=== PATIENT | female | born 1995 | race Caucasian/White ===

== ENCOUNTER 2017-03-28 10:10 | Emergency (ER) | payer OTHER ==
[~2017-03-28] VITALS: Ht 177.8 cm; Wt 98.0 kg
[~2017-03-28 10:10] MED LIST: IBUP1TAB7 PO; ROBA750T PO
[2017-03-28 10:12] VITALS: BP 140/80; PULSE 109; RESP 16; TEMP 98.3; O2SAT 100
[2017-03-28] MEDS ORDERED: SODIUM CHLOR 0.9% 1000 ML INJ 1,000 ML IV ONE (11:30)
--- NOTE | 2017-03-28 11:33 | PD ---
HPI Chief Complaint: Related Problem Time Seen by Provider: 11:14 Travel History International Travel<30 days: No Contact w/Intl Traveler<30days: No Traveled to known affect area: No History of Present Illness HPI This is a 21-year-old female who presents to the emergency department 13 weeks with twins coming in with 2 days of nausea, vomiting and diarrhea. She says she's had 10 episodes of vomiting and she's had loose nonbloody stools , constant, moderate severity. She says she ate more than normal last night. She denies any fevers or chills. No one else is been sick. She was mostly concerned because she is . She's been taking Phenergan for nausea which was prescribed by her intensive care unit nurse. PFSH Past Medical History Autoimmune Disease: No Anxiety: No Depression: No Cardiovascular Problems: No Diminished Hearing: No Gastrointestinal Disorders: No Genitourinary: No Musculoskeletal: No Neurologic: No Psychiatric: No Respiratory: No Immunizations Current: Yes ?: Past Surgical History Other Surgery: No Social History Alcohol Use: No Tobacco Use: No Substance Use: Yes (MARIJUANA) Allergies-Medications (Allergen,Severity, Reaction): Coded Allergies: latex (Unverified Allergy, Intermediate, RASH, 03/28/17) Reported Meds & Prescriptions Reported Meds & Active Scripts Active Ibuprofen 800 Mg Tab 800 Mg PO Q8H PRN Robaxin (Methocarbamol) 750 Mg Tab 750 Mg PO Q8HR Review of Systems Except as stated in HPI: all other systems reviewed are Neg Physical Exam Narrative GENERAL:Well appearing, no acute distress SKIN: Focused skin assessment warm and dry. HEAD: Atraumatic. Normocephalic. EYES: Pupils equal and round. No injection or drainage. ENT: Moist mucous membranes NECK: Trachea midline. CARDIOVASCULAR: Regular rate and rhythm. No murmur appreciated. RESPIRATORY: Clear to auscultation. Breath sounds equal bilaterally. GASTROINTESTINAL: Abdomen soft, non-tender, nondistended. MUSCULOSKELETAL: No obvious deformities. NEUROLOGICAL: Awake and alert. No obvious cranial nerve deficits. Moving all extremities. PSYCHIATRIC: Appropriate mood and affect; insight and judgment normal. Data Data Last Documented VS Vital Signs Date Time Temp Pulse Resp B/P (MAP) Pulse Ox O2 Delivery O2 Flow Rate FiO2 03/28/17 10:12 98.3 109 16 140/80 (100) 100 Orders Orders Complete Blood Count With Diff (03/28/17 11:27) Comprehensive Metabolic Panel (03/28/17 11:27) ^ Insert Iv (03/28/17 11:27) Sodium Chlor 0.9% 1000 Ml Inj (Ns 1000 M (03/28/17 11:30) Ondansetron Inj (Zofran Inj) (03/28/17 11:45) Labs Laboratory Tests Test 03/28/17 11:50 White Blood Count 15.6 TH/MM3 Red Blood Count 4.62 MIL/MM3 Hemoglobin 14.0 GM/DL Hematocrit 40.3 % Mean Corpuscular Volume 87.3 FL Mean Corpuscular Hemoglobin 30.3 PG Mean Corpuscular Hemoglobin Concent 34.7 % Red Cell Distribution Width 13.4 % Platelet Count 223 TH/MM3 Mean Platelet Volume 10.6 FL Neutrophils (%) (Auto) 90.8 % Lymphocytes (%) (Auto) 5.5 % Monocytes (%) (Auto) 3.4 % Eosinophils (%) (Auto) 0.1 % Basophils (%) (Auto) 0.2 % Neutrophils # (Auto) 14.2 TH/MM3 Lymphocytes # (Auto) 0.9 TH/MM3 Monocytes # (Auto) 0.5 TH/MM3 Eosinophils # (Auto) 0.0 TH/MM3 Basophils # (Auto) 0.0 TH/MM3 CBC Comment DIFF FINAL Differential Comment Blood Urea Nitrogen 9 MG/DL Creatinine 0.45 MG/DL Random Glucose 93 MG/DL Total Protein 7.3 GM/DL Albumin 3.5 GM/DL Calcium Level 9.2 MG/DL Alkaline Phosphatase 53 U/L Aspartate Amino Transf (AST/SGOT) 14 U/L Alanine Aminotransferase (ALT/SGPT) 22 U/L Total Bilirubin 0.3 MG/DL Sodium Level 137 MEQ/L Potassium Level 3.6 MEQ/L Chloride Level 104 MEQ/L Carbon Dioxide Level 23.3 MEQ/L Anion Gap 10 MEQ/L Estimat Glomerular Filtration Rate 178 ML/MIN MDM Medical Decision Making Medical Screen Exam Complete: Yes Emergency Medical Condition: Yes Interpretation(s) Afebrile, mild tachycardia, normotensive Leukocytosis mildly elevated consistent with likely gastroenteritis and early . Electrolytes are reassuring with no evidence of dehydration. Differential Diagnosis Gastroenteritis, appendicitis, dehydration, electrolyte abnormality Narrative Course This is a 21-year-old female who is 13 weeks who presents to the emergency department with vomiting and diarrhea. She was given a liter of IV hydration. Labs are obtained which demonstrate a mild leukocytosis but are otherwise reassuring. She has a benign abdomen. I think the patient has viral gastroenteritis. I think she can be treated conservatively and can continue to take her antiemetics at home. Patient will be discharged. Diagnosis Primary Impression: Viral gastroenteritis Patient Instructions: General Instructions Additional Instructions: If you develop lightheadedness, dizziness, persistent vomiting, inability to eat , or severe abdominal pain return to the emergency department. Followup with your primary care physician in 2-3 days if your symptoms have not resolved. Wash your hands aggressively after using the restroom as to not spread your illness to others. Do not return to work until your symptoms have resolved. Med/Other Pt SpecificInfo: No Change to Meds Disposition: 01 DISCHARGE HOME Condition: Stable Deedee Lopes MD Mar 28, 2017 11:33
[2017-03-28] MEDS ORDERED: ONDANSETRON HCL 4 MG/2 ML VIAL IV ONE (11:45)
[2017-03-28 12:29] LABS: AUTOMATED NEUTROPHIL # 14.2 TH/MM3 (1.8-7.7); BASOPHIL % 0.2 % (0.0-2.0); EOSINOPHIL % 0.1 % (0.0-4.0); HEMATOCRIT 40.3 % (35.0-46.0); LYMPH % 5.5 % (9.0-44.0); LYMPHOCYTE # 0.9 TH/MM3 (1.0-4.8); MEAN CELL VOLUME 87.3 FL (80.0-100.0); MEAN CORPUSCULAR HEMOGLOBIN 30.3 PG (27.0-34.0); MEAN CORPUSCULAR HGB CONC 34.7 % (32.0-36.0); MEAN PLATELET VOLUME 10.6 FL (7.0-11.0); MONO % 3.4 % (0.0-8.0); MONOCYTE # 0.5 TH/MM3 (0-0.9); NEUT % 90.8 % (16.0-70.0); PLATELET COUNT 223 TH/MM3 (150-450); RED BLOOD COUNT 4.62 MIL/MM3 (4.00-5.30); RED CELL DISTRIBUTION WIDTH 13.4 % (11.6-17.2); WHITE BLOOD COUNT 15.6 TH/MM3 (4.0-11.0)
[2017-03-28 12:42] LABS: ALBUMIN 3.5 GM/DL (3.4-5.0); AST (GOT) 14 U/L (16-38); BICARBONATE 23.3 MEQ/L (21.0-32.0); BLOOD UREA NITROGEN 9 MG/DL (7-18); CALCIUM 9.2 MG/DL (8.5-10.1); CHLORIDE 104 MEQ/L (98-107); CREATININE 0.45 MG/DL (0.50-1.00); GLOMERULAR FILTRATION RATE 178 ML/MIN (>89); GLUCOSE,RANDOM 93 MG/DL (74-106); SODIUM (NA) 137 MEQ/L (136-145)
[2017-03-28 12:44] LABS: ALT (GPT) 22 U/L (9-42)
[2017-03-28 12:46] LABS: ALKALINE PHOSPHATASE 53 U/L (45-117); TOTAL BILIRUBIN ADULT 0.3 MG/DL (0.2-1.0); TOTAL PROTEIN 7.3 GM/DL (6.4-8.2)
[2017-03-28 13:21] VITALS: BP 132/76
== END 2017-03-28 13:22 | disposition home or self-care (01) ==
LOC: NEPD 10:10
DX: A08.4 Viral intestinal infection, unspecified (principal); Z3A.13 13 weeks gestation of pregnancy; F12.90 Cannabis use, unspecified, uncomplicated
CPT/HCPCS: 80053; 85025; 96361; 96374; 99284; J2405; J7030

== ENCOUNTER → 2017-04-20 | Outpatient (CLI) | payer OTHER | LOC: HPND 12:46 | PROVIDERS: ATTEND Obstetrics & Gynecology | DX: O30.032 Twin pregnancy, monochorionic/diamniotic, second trimester (principal); O28.0 Abnormal hematological finding on antenatal screening of mother | CPT/HCPCS: 76811; 76812; 76817 ==

== ENCOUNTER → 2017-05-04 | Outpatient (CLI) | payer OTHER | LOC: HPND 12:52 | PROVIDERS: ATTEND Obstetrics & Gynecology | DX: O30.032 Twin pregnancy, monochorionic/diamniotic, second trimester (principal); O28.0 Abnormal hematological finding on antenatal screening of mother | CPT/HCPCS: 76815; 76817; 76820 ==

== ENCOUNTER → 2017-05-18 | Outpatient (CLI) | payer OTHER | LOC: HPND 12:28 | PROVIDERS: ATTEND Obstetrics & Gynecology | DX: O30.032 Twin pregnancy, monochorionic/diamniotic, second trimester (principal); O28.0 Abnormal hematological finding on antenatal screening of mother | CPT/HCPCS: 76816 ==

== ENCOUNTER → 2017-06-01 | Outpatient (CLI) | payer OTHER | LOC: HPND 12:03 | PROVIDERS: ATTEND Obstetrics & Gynecology | DX: O30.032 Twin pregnancy, monochorionic/diamniotic, second trimester (principal) | CPT/HCPCS: 76815; 76817 ==

== ENCOUNTER 2017-06-17 09:12 | Emergency (ER) | payer OTHER, MEDICAID ==
[~2017-06-17] VITALS: Ht 177.8 cm; Wt 113.4 kg
--- NOTE | 2017-06-17 10:40 | PD ---
HPI Chief Complaint cramping pain and soreness Date Seen: Jun 17, 2017 Time Seen: 10:00 (Carter Pickens MD R1) Travel History International Travel<30 Days: No Contact w/Intl Traveler<30Days: No Known Affected Area: No (Carter Pickens MD R1) History of Present Illness HPI Ms Madden is a 21YO with mono/di twin gestation at 25/[address] Turcios who presents with cramping pain and soreness in RLQ beginning this morning. Pt states pain is 8/10 on pain scale and constant. Pt has not taken anything for the pain yet but states she has been hydrating. Pt gets OB diagnostic US q2 weeks and got one yesterday on 06/16 with showed twin gestation at 25/3 weeks with no abnormalities on US; however, there was an abnormal quad screen and pt has declined amniocentesis. Pt denies discharge or vaginal bleeding, N/V/D, constipation, fever, dysuria, PECK, CP or SOB. Pt did have strep throat approx 2 weeks ago treated with amoxicillin. Pt states sore throat has resolved but still has an intermittent cough. Pt is currently taking PNV and aspirin as ppx but denies any high BP or increased blood glucose. States all her labs have been normal thus far. Denies previous STIs and states her urinalysis thus far has been normal with no protein. Denies sexual activity for last 2 weeks. Weeks Gestation: 25 Para: 0 : 1 Last Menstrual Period: Jun 17, 2017 Miscarriage: 0 : 0 (Carter Pickens MD R1) History Past Medical History Medical History: Denies Significant Hx (Carter Pickens MD R1) Obstetric History Obstetric History (Carter Pickens MD R1) Past Surgical History Narrative Surgical Surgery on left arm as 9YO due to fracture (Carter Pickens MD R1) Family History Narrative Family History negative (Carter Pickens MD) Social History Alcohol Use: No Tobacco Use: No Substance Abuse: No (Carter Pickens MD) Allergies-Medications (Allergen,Severity, Reaction): Coded Allergies: latex (Unverified Allergy, Intermediate, RASH, 06/17/17) Home Meds Active Scripts Ibuprofen (Ibuprofen) 800 Mg Tab, 800 MG PO Q8H Y for PAIN SCALE 1 TO 10, #21 TAB 0 Refills Prov:Amada Griggs MD 02/13/16 Methocarbamol (Robaxin) 750 Mg Tab, 750 MG PO Q8HR for Muscle Spasm, #21 TAB 0 Refills Prov:Amada Griggs MD 02/13/16 Review of Systems General / Constitutional: No: Fever, Chills HENT: No: Headaches, Lightheadedness Cardiovascular: Edema, No: Chest Pain or Discomfort, Palpitations Respiratory: Cough, No: Short of Breath Gastrointestinal: Abdominal Pain, No: Nausea, Vomiting, Diarrhea, Constipation , Changes in Bowel Habits Genitourinary: Pelvic Pain (RLQ), No: Urgency, Dysuria, Hematuria, Discharge, Vaginal Bleeding Musculoskeletal: Cramping (RLQ), Edema Skin: No Rash Neurologic: No: Weakness, Dizziness, Headache (Carter Pickens MD R1) Physical Exam T - 99.4 / BP 134/82 / HR 124-130 / spO2 98% RA Narrative GENERAL: Well-nourished, well-developed patient in NAD. SKIN: Warm and dry. no rashes; however, numerous lower abdominal striae bilaterally. HEAD: Normocephalic and atraumatic. EYES: No scleral icterus. No injection or drainage. ENT: No nasal drainage noted. Mucous membranes pink. Airway patent. NECK: Supple, trachea midline. No JVD. CARDIOVASCULAR: Tachycardic with regular rhythm without murmurs, gallops, or rubs. RESPIRATORY: Breath sounds equal bilaterally. No accessory muscle use. ABDOMEN/GI: Abdomen soft, non-tender, bowel sounds present, no rebound, no guarding Gravid to 25 weeks size GENITOURINARY: External Genitalia: intact and normal in appearance Cervix: closed, high and long Dilatation: - Effacement: - Station: - Presentation: - Membranes: intact Uterine Contractions: absent FHT's: Category: 1 Baseline: Twin A - 150 / Twin B - 150 Reactive: yes Variability: moderate Decels: absent EXTREMITIES: No cyanosis or edema. BACK: Nontender without obvious deformity. No CVA tenderness. NEUROLOGICAL: Awake and alert. Motor and sensory grossly within normal limits. Five out of 5 muscle strength in all muscle groups. Normal speech. (Carter Pickens MD R1) Data Data Vital Signs Reviewed: Yes Orders Orders Urinalysis - C+S If Indicated (06/17/17 09:51) Fibronectin (06/17/17 10:02) (Carter Pickens MD R1) MDM Medical Record Reviewed: Yes Narrative Course / MDM 21YO with mono/di twin gestation on OB diagnostic US at 25/4 weeks, pt followed by Dr Turcios, p/w new onset RLQ cramping pain and soreness this morning. Consider dehydration vs UTI vs round ligament pain. FHTs both twins Cat 1 with baseline 150 moderate, reactive, no decels; pt ishas no ctx, discharge, vaginal bleeding 1. [place]/Di Twin gestation -OB diagnostic US 06/16/17 wnl 2. RLQ cramping pain/soreness; likely some dehydration with round ligament pain -UA negative for infection but there are some occult calcium oxalate crystals -FFN negative -Tylenol 650mg PO q6h -Encourage hydration--calcium oxalate crystals can raise possibility of kidney stones; pt encouraged to take more fluids Pt seen and dw Dean Feliciano and Kehinde Dumont (Carter Pickens MD R1) Attending Attestation Patient seen and evaluated with resident under direct supervision, agree with assessment and plan. (Bridger Feliciano MD) Diagnosis Diagnosis: Primary Impression: Antepartum dehydration Additional Impression: Round ligament pain Disposition: 01 DISCHARGE HOME Condition: Stable Carter Pickens MD R1 Jun 17, 2017 10:40 Bridger Feliciano MD Jun 17, 2017 12:59
[2017-06-17 10:47] LABS: BACTERIA, URINE RARE /hpf; BILIRUBIN, URINE NEG (NEG); BLOOD, URINE NEG (NEG); CALCIUM OXALATE CRYSTALS,URINE OCC /hpf; GLUCOSE,URINE NEG (NEG); KETONE, URINE NEG (NEG); MUCUS URINE FEW /lpf (OCC); NITRITE,URINE NEG (NEG); PH, URINE 6.5 (5.0-8.5); SQUAMOUS EPITHELIAL CELL URINE 2 /hpf (0-5); TRANSITIONAL EPI CELLS, URINE <1 /hpf; URINE COLOR YELLOW (YELLW/STRAW); URINE LEUKOCYTE ESTERASE NEG (NEG)
== END 2017-06-17 12:25 | disposition home or self-care (01) ==
LOC: HOBED 09:12
DX: O26.892 Other specified pregnancy related conditions, second trimester (principal); E86.0 Dehydration; R10.2 Pelvic and perineal pain; O30.032 Twin pregnancy, monochorionic/diamniotic, second trimester; Z3A.25 25 weeks gestation of pregnancy
CPT/HCPCS: 81001; 82731; 99284

== ENCOUNTER 2017-06-21 07:36 | Emergency (ER) | payer OTHER, MEDICAID ==
[~2017-06-21] VITALS: Ht 177.8 cm; Wt 95.3 kg
--- NOTE | 2017-06-21 08:21 | PD ---
HPI Chief Complaint Swollen painful red ankle Date Seen: Jun 21, 2017 Time Seen: 08:10 Travel History International Travel<30 Days: No Contact w/Intl Traveler<30Days: No Known Affected Area: No History of Present Illness HPI Patient is 21-year-old primary [address] Turcios at [facility] for care and presents with complaint of a painful red swollen right ankle, both ankles are swollen have been swollen for a month but yesterday her right ankle pain increased and now it is red and very tender, there is no history of injury to either ankle,; there is no obstetric complaint heart rate tracing is reactive no contractions seen, no bleeding, leakage, Weeks Gestation: 26 Para: 0 : 1 Allergies-Medications (Allergen,Severity, Reaction): Coded Allergies: latex (Unverified Allergy, Intermediate, RASH, 06/17/17) Home Meds Active Scripts Cephalexin (Keflex) 500 Mg Cap, 500 MG PO Q6H for Infection for 7 Days, #28 CAP 0 Refills Prov:Javier Ho II, MD 06/21/17 Discontinued Scripts Ibuprofen (Ibuprofen) 800 Mg Tab, 800 MG PO Q8H Y for PAIN SCALE 1 TO 10, #21 TAB 0 Refills Prov:Amada Griggs MD 02/13/16 Methocarbamol (Robaxin) 750 Mg Tab, 750 MG PO Q8HR for Muscle Spasm, #21 TAB 0 Refills Prov:Amada Griggs MD 02/13/16 Review of Systems General / Constitutional: No: Fever, Weight Gain, Chills, Other Eyes: No: Diploplia, Blurred Vision, Visual changes, Pain, Photophobia HENT: No: Headaches, Vertigo, Lightheadedness Cardiovascular: No: Irregular Rhythm, Chest Pain or Discomfort, Palpitations, Tachycardia, Syncope, Varicosities, Edema, Cyanosis Respiratory: No: Cough, Short of Breath, Other Gastrointestinal: No: Nausea, Vomiting, Diarrhea Genitourinary: No: Decreased Urinary Output, Oliguria Musculoskeletal: Edema, Pain, No: Limited ROM, Weakness, Cramping Skin: No Rash, No Itching, No Dryness, No Lumps, No Change in Pigmentation, No Change in Nails, No Alopecia, No Lesions Neurologic: No: Weakness, Dizziness, Syncope, Focal Abnormalities, Coordination Problem, Headache, Slurred Speech, Seizures Psychiatric: No: Depression, Suicidal Ideations, Homicidal Ideation Endocrine: No: Heat Intolerance, Cold Intolerance, Polydipsia, Polyuria, Other Physical Exam Narrative GENERAL: Well-nourished, well-developed patient. SKIN: Warm and dry. HEAD: Normocephalic and atraumatic. EYES: No scleral icterus. No injection or drainage. ENT: No nasal drainage noted. Mucous membranes pink. Airway patent. NECK: Supple, trachea midline. No JVD. CARDIOVASCULAR: Regular rate and rhythm without murmurs, gallops, or rubs. RESPIRATORY: Breath sounds equal bilaterally. No accessory muscle use. BREASTS: Bilateral exam showed no masses , no retractions, no nipple discharge. ABDOMEN/GI: Abdomen soft, non-tender, bowel sounds present, no rebound, no guarding Gravid to [26-] weeks size Fundal Height: [26-] FHT's: Category: [1-] Baseline: [133-] Reactive: [R-] Variability: [mod-] Decels: [0-] EXTREMITIES: Ankles are swollen, right ankle is also a cellulitis on the inside surface, area is pink to red, tender to touch, warm to palpation BACK: Nontender without obvious deformity. No CVA tenderness. NEUROLOGICAL: Awake and alert. Motor and sensory grossly within normal limits. Five out of 5 muscle strength in all muscle groups. Normal speech. Data Data Orders Orders Us Leg Venous Doppler (06/21/17 ) Complete Blood Count With Diff (06/21/17 08:11) Labs venous doppler neg for DVT MDM Interpretation(s) Patient is 21-year-old white female at 26 weeks who presents with right ankle cellulitis, plan venous Doppler of the right lower extremity [neg for DVT], p.o. antibiotics[ keflex 500 mg po qid 7 d], elevation of the extremity, will discuss with Dr. Turcios Plan Plan as described above patient in follow-up in the [facility] office Diagnosis Diagnosis: Primary Impression: Cellulitis of right ankle Additional Impression: 26 weeks gestation of Disposition: DISCHARGE HOME Condition: Stable Scripts Cephalexin (Keflex) 500 Mg Cap 500 MG PO Q6H for Infection for 7 Days, #28 CAP 0 Refills Prov: Javier Ho II, MD 06/21/17 Javier Ho II, MD Jun 21, 2017 08:21
[2017-06-21] MEDS ORDERED: CEPH-460 PO (08:28)
[2017-06-21 08:37] LABS: AUTOMATED NEUTROPHIL # 8.6 TH/MM3 (1.8-7.7); BASOPHIL % 0.2 % (0.0-2.0); EOSINOPHIL % 0.3 % (0.0-4.0); HEMATOCRIT 32.3 % (35.0-46.0); HEMOGLOBIN 11.2 GM/DL (11.6-15.3); LYMPH % 11.5 % (9.0-44.0); LYMPHOCYTE # 1.2 TH/MM3 (1.0-4.8); MEAN CELL VOLUME 86.5 FL (80.0-100.0); MEAN CORPUSCULAR HEMOGLOBIN 29.9 PG (27.0-34.0); MEAN CORPUSCULAR HGB CONC 34.6 % (32.0-36.0); MEAN PLATELET VOLUME 9.4 FL (7.0-11.0); MONO % 6.4 % (0.0-8.0); MONOCYTE # 0.7 TH/MM3 (0-0.9); NEUT % 81.6 % (16.0-70.0); PLATELET COUNT 204 TH/MM3 (150-450); RED BLOOD COUNT 3.74 MIL/MM3 (4.00-5.30); RED CELL DISTRIBUTION WIDTH 13.7 % (11.6-17.2); WHITE BLOOD COUNT 10.6 TH/MM3 (4.0-11.0)
--- NOTE | 2017-06-21 09:10 | RADRPT ---
EXAM DATE/TIME: 06/21/2017 08:31 [facility] COMPARISON: No previous studies available for comparison. INDICATIONS : Right leg swelling and pain. MEDICAL HISTORY : Peripheral vascular disease. SURGICAL HISTORY : None. Left arm surgery. ENCOUNTER: Initial ACUITY: 2 day PAIN SCORE: 6/10 LOCATION: Right leg. TECHNIQUE: Venous ultrasound of the leg was performed from the inguinal ligament to the proximal calf. Real-kera e, color Doppler and spectral tracing, compression and augmentation techniques were used. FINDINGS: There is normal compressibility of the deep venous system from the inguinal region to the proximal ca lf. No echogenic clot is seen in the lumen of the common femoral, femoral, popliteal, and posterior tibial veins. There is a normal response of the venous system to proximal and distal augmentation an d respiration. CONCLUSION: No acute disease. Kory Miranda MD on June 21, 2017 at 9:08 Board Certified Radiologist. This report was verified electronically.
== END 2017-06-21 09:12 | disposition home or self-care (01) ==
LOC: HOBED 07:36
DX: O99.712 Diseases of the skin and subcutaneous tissue complicating pregnancy, second trimester (principal); L03.115 Cellulitis of right lower limb; Z3A.26 26 weeks gestation of pregnancy
CPT/HCPCS: 36415; 85025; 93971

== ENCOUNTER 2017-07-08 08:52 | Emergency (ER) | payer OTHER, MEDICAID ==
[~2017-07-08 08:52] MED LIST changes: +CEPH-460 PO; -IBUP1TAB7 PO; -ROBA750T PO
[2017-07-08 10:06] LABS: AUTOMATED NEUTROPHIL # 11.1 TH/MM3 (1.8-7.7); BASOPHIL % 0.2 % (0.0-2.0); EOSINOPHIL # 0.1 TH/MM3 (0-0.4); EOSINOPHIL % 0.6 % (0.0-4.0); HEMATOCRIT 34.6 % (35.0-46.0); HEMOGLOBIN 11.8 GM/DL (11.6-15.3); LYMPH % 14.2 % (9.0-44.0); MEAN CELL VOLUME 86.3 FL (80.0-100.0); MEAN CORPUSCULAR HEMOGLOBIN 29.4 PG (27.0-34.0); MEAN PLATELET VOLUME 9.9 FL (7.0-11.0); MONO % 7.4 % (0.0-8.0); MONOCYTE # 1.1 TH/MM3 (0-0.9); NEUT % 77.6 % (16.0-70.0); PLATELET COUNT 240 TH/MM3 (150-450); RED BLOOD COUNT 4.01 MIL/MM3 (4.00-5.30); RED CELL DISTRIBUTION WIDTH 13.4 % (11.6-17.2); WHITE BLOOD COUNT 14.3 TH/MM3 (4.0-11.0)
[2017-07-08 10:21] LABS: ALBUMIN 2.3 GM/DL (3.4-5.0); ALT (GPT) 20 U/L (9-42); AST (GOT) 16 U/L (16-38); BLOOD UREA NITROGEN 5 MG/DL (7-18); CALCIUM 9.3 MG/DL (8.5-10.1); CHLORIDE 107 MEQ/L (98-107); CREATININE 0.37 MG/DL (0.50-1.00); GLOMERULAR FILTRATION RATE 223 ML/MIN (>89); GLUCOSE,RANDOM 79 MG/DL (74-106); SODIUM (NA) 142 MEQ/L (136-145)
[2017-07-08 10:24] LABS: ALKALINE PHOSPHATASE 108 U/L (45-117); TOTAL BILIRUBIN ADULT 0.2 MG/DL (0.2-1.0); TOTAL PROTEIN 5.8 GM/DL (6.4-8.2)
[2017-07-08 10:33] LABS: BACTERIA, URINE OCC /hpf; BILIRUBIN, URINE NEG (NEG); BLOOD, URINE NEG (NEG); GLUCOSE,URINE NEG (NEG); KETONE, URINE NEG (NEG); MUCUS URINE FEW /lpf (OCC); NITRITE,URINE NEG (NEG); SQUAMOUS EPITHELIAL CELL URINE 12 /hpf (0-5); URINE COLOR YELLOW (YELLW/STRAW); URINE LEUKOCYTE ESTERASE MOD (NEG)
--- NOTE | 2017-07-08 10:53 | PD ---
HPI Chief Complaint Elevated blood pressure Date Seen: Jul 08, 2017 Time Seen: 10:49 Travel History International Travel<30 Days: No Contact w/Intl Traveler<30Days: No Known Affected Area: No History of Present Illness HPI 21-year-old primigravida at 28+ weeks gestation with a dichorionic diamniotic twin gestation who comes for evaluation of elevated blood pressure. She is a patient of Dr. Doyle. She reports having a mildly elevated blood pressure in the office earlier this week and was planning a 24-hour urine collection to start on Tuesday. She denies any headache, visual changes or abrupt change in swelling. No abdominal pain. She reports good movement. History Past Medical History Medical History: Denies Significant Hx Past Surgical History Narrative Surgical Arm surgery Family History Family History: Negative Social History Alcohol Use: No Tobacco Use: No Substance Abuse: No Allergies-Medications (Allergen,Severity, Reaction): Coded Allergies: latex (Unverified Allergy, Intermediate, RASH, 06/17/17) Home Meds Active Scripts Cephalexin (Keflex) 500 Mg Cap, 500 MG PO Q6H for Infection for 7 Days, #28 CAP 0 Refills Prov:Javier Ho II, MD 06/21/17 Review of Systems Except as stated in HPI: all other systems reviewed are Neg Physical Exam Narrative GENERAL: Well-nourished, well-developed patient. SKIN: Warm and dry. HEAD: Normocephalic and atraumatic. EYES: No scleral icterus. No injection or drainage. ENT: No nasal drainage noted. Mucous membranes pink. Airway patent. NECK: Supple, trachea midline. No JVD. CARDIOVASCULAR: Regular rate and rhythm without murmurs, gallops, or rubs. RESPIRATORY: Breath sounds equal bilaterally. No accessory muscle use. ABDOMEN/GI: Abdomen soft, non-tender, bowel sounds present, no rebound, no guarding Gravid to [-] weeks size Fundal Height: [-] GENITOURINARY: Uterine Contractions: [No-] FHT's: Category: [1-] Baseline: [-] Reactive: [-Yes 2] Variability: [-] Decels: [-] EXTREMITIES: No cyanosis or edema. BACK: Nontender without obvious deformity. No CVA tenderness. NEUROLOGICAL: Awake and alert. Motor and sensory grossly within normal limits. Five out of 5 muscle strength in all muscle groups. Normal speech. Data Data Orders Orders Urinalysis - C+S If Indicated (07/08/17 09:29) Protein Creat Ratio, Random Ur (07/08/17 09:29) Comprehensive Metabolic Panel (07/08/17 09:29) Uric Acid (07/08/17 09:29) Complete Blood Count With Diff (07/08/17 09:29) Labs Laboratory Tests Test 07/08/17 09:41 White Blood Count 14.3 Red Blood Count 4.01 Hemoglobin 11.8 Hematocrit 34.6 Mean Corpuscular Volume 86.3 Mean Corpuscular Hemoglobin 29.4 Mean Corpuscular Hemoglobin Concent 34.0 Red Cell Distribution Width 13.4 Platelet Count 240 Mean Platelet Volume 9.9 Neutrophils (%) (Auto) 77.6 Lymphocytes (%) (Auto) 14.2 Monocytes (%) (Auto) 7.4 Eosinophils (%) (Auto) 0.6 Basophils (%) (Auto) 0.2 Neutrophils # (Auto) 11.1 Lymphocytes # (Auto) 2.0 Monocytes # (Auto) 1.1 Eosinophils # (Auto) 0.1 Basophils # (Auto) 0.0 CBC Comment DIFF FINAL Differential Comment Urine Color YELLOW Urine Turbidity CLEAR Urine pH 6.0 Urine Specific [place] 1.016 Urine Protein TRACE Urine Glucose (UA) NEG Urine Ketones NEG Urine Occult Blood NEG Urine Nitrite NEG Urine Bilirubin NEG Urine Urobilinogen LESS THAN 2.0 Urine Leukocyte Esterase MOD Urine RBC 1 Urine WBC 6 Urine Squamous Epithelial Cells 12 Urine Bacteria OCC Urine Mucus FEW Microscopic Urinalysis Comment CULT NOT INDICATED Urine Random Total Protein 38 Blood Urea Nitrogen 5 Creatinine 0.37 Random Glucose 79 Total Protein 5.8 Albumin 2.3 Calcium Level 9.3 Uric Acid 5.4 Alkaline Phosphatase 108 Aspartate Amino Transf (AST/SGOT) 16 Alanine Aminotransferase (ALT/SGPT) 20 Total Bilirubin 0.2 Sodium Level 142 Potassium Level 3.8 Chloride Level 107 Carbon Dioxide Level 23.0 Anion Gap 12 Estimat Glomerular Filtration Rate 223 MDM Medical Record Reviewed: Yes Narrative Course / MDM Assessment: 28+ week twins with mild elevation of blood pressure, mildly elevated pr/cr, no evidence of severe disease Plan: Complete 24-hour urine starting on Tuesday and return to Dr. Doyle on Tuesday. Preeclampsia precautions were reviewed with the patient. Diagnosis Diagnosis: Primary Impression: 28 weeks gestation of Additional Impressions: Dichorionic diamniotic twin gestation Hypertension affecting in third trimester Disposition: 01 DISCHARGE HOME Condition: Good Bridger Feliciano MD Jul 08, 2017 10:53
== END 2017-07-08 12:14 | disposition home or self-care (01) ==
LOC: HOBED 08:52
DX: O16.3 Unspecified maternal hypertension, third trimester (principal); O30.043 Twin pregnancy, dichorionic/diamniotic, third trimester; Z3A.28 28 weeks gestation of pregnancy
CPT/HCPCS: 36415; 80053; 81001; 82570; 84156; 84550; 85025

== ENCOUNTER 2017-07-20 10:18 | Inpatient (IN) | payer OTHER, MEDICAID ==
[~2017-07-20] VITALS: Ht 177.8 cm; Wt 126.6 kg
[2017-07-20 10:43] VITALS: BP 156/94; PULSE 97
[2017-07-20 11:00] VITALS: RESP 18; TEMP 98.3
[2017-07-20] MEDS ORDERED: FAMOTIDINE 20 MG TAB PO PRN (11:00)
[2017-07-20] MEDS ORDERED: NIFEdipine 10 MG CAP PO PRN ×3 (11:00→11:45)
[2017-07-20] MEDS ORDERED: ONDANSETRON ODT 4 MG TAB PO PRN (11:00)
[2017-07-20] MEDS ORDERED: SODIUM CHLORIDE 0.9% FLUSH 10 ML FLUSH IV FLUSH PRN (11:00)
[2017-07-20] MEDS ORDERED: ACETAMINOPHEN 325 MG TAB PO PRN (11:00)
[2017-07-20] MEDS ORDERED: ONDANSETRON HCL 4 MG/2 ML VIAL IV PUSH PRN (11:00)
--- NOTE | 2017-07-20 11:03 | HHI.HP ---
HPI Chief Complaint admission for preeclampsia Date Seen: July 20, 2017 Travel History International Travel<30 Days: No Contact w/Intl Traveler<30Days: No Known Affected Area: No History of Present Illness HPI 21-year-old G1 at 30w2d by 9wk US (GARRICK 09/26/17) who is seen by maternal medicine today for testing and consultation due to new diagnosis of preeclampsia without severe features. She was being followed by them routinely for her monochorionic diamniotic twin gestation. Spoke to Dr. Penelope Arenas today and plan was made for inpatient management given the risks associated with a John , a slight decline in the MVP of Baby A but still normal and preeclampsia at gestation. I have been following the patient throughout her , she was diagnosed with preeclampsia at the end of last month with mild range BPs and a 24hr urine protein > 300mg. She has normal weekly HELLP labs and checking her BPs at home and aware of severe features. I did not see the patient personally today but I spoke to her over the phone after her admission, she has no complaints, denies headache, epigastric pain or right upper quadrant pain. Endorses movement. History Past Medical History Narrative Medical None Obstetric History Obstetric History G1 Past Surgical History Narrative Surgical Arm surgery Family History Narrative Family History Noncontributory Social History Alcohol Use: No Tobacco Use: Yes Allergies-Medications (Allergen,Severity, Reaction): Coded Allergies: latex (Unverified Allergy, Intermediate, RASH, 06/17/17) Home Meds Active Scripts Cephalexin (Keflex) 500 Mg Cap, 500 MG PO Q6H for Infection for 7 Days, #28 CAP 0 Refills Prov:Javier Ho II, MD 06/21/17 Narrative Medication Patient is not taking Keflex. Has been taking 81mg aspirin and vitamins daily Review of Systems General / Constitutional: No: Fever, Weight Gain, Chills, Other Eyes: No: Diploplia, Blurred Vision, Visual changes, Pain, Photophobia HENT: No: Headaches, Vertigo, Lightheadedness Cardiovascular: No: Irregular Rhythm, Chest Pain or Discomfort, Palpitations, Tachycardia, Syncope, Varicosities, Edema, Cyanosis Respiratory: No: Cough, Short of Breath, Other Gastrointestinal: No: Nausea, Vomiting, Diarrhea Genitourinary: No: Decreased Urinary Output, Oliguria Musculoskeletal: No: Limited ROM, Weakness, Cramping, Edema, Pain Skin: No Rash, No Itching, No Dryness, No Lumps, No Change in Pigmentation, No Change in Nails, No Alopecia, No Lesions Neurologic: No: Weakness, Dizziness, Syncope, Focal Abnormalities, Coordination Problem, Headache, Slurred Speech, Seizures Psychiatric: No: Depression, Suicidal Ideations, Homicidal Ideation Endocrine: No: Heat Intolerance, Cold Intolerance, Polydipsia, Polyuria, Other Physical Exam Temperature 98.3, pulse 97, respiratory rate 18, blood pressure 154/94. Narrative Deferred, Will perform tomorrow upon my assessment of the patient Caprini VTE Risk Assessment Caprini VTE Risk Assessment: Mod/High Risk (score >= 2) Caprini Risk Assessment Model Point Value = 1 Point Value = 2 Point Value = 3 Point Value = 5 Age 41-60 Minor surgery BMI > 25 kg/m2 Swollen legs Varicose veins or History of unexplained or recurrent spontaneous Oral contraceptives or hormone replacement Sepsis (< 1 month) Serious lung disease, including pneumonia (< 1 month) Abnormal pulmonary function Acute myocardial infarction Congestive heart failure (< 1 month) History of inflammatory bowel disease Medical patient at bed rest Age 61-74 Arthroscopic surgery Major open surgery (> 45 min) Laparoscopic surgery (> 45 min) Malignancy Confined to bed (> 72 hours) Immobilizing plaster cast Central venous access Age >= 75 History of VTE Family history of VTE Factor V Leiden Prothrombin [id number] Lupus anticoagulant Anticardiolipin antibodies Elevated serum homocysteine Heparin-induced thrombocytopenia Other congenital or acquired thrombophilia Stroke (< 1 month) Elective arthroplasty Hip, pelvis, or leg fracture Acute spinal cord injury (< 1 month) Prophylaxis Regimen Total Risk Factor Score Risk Level Prophylaxis Regimen 0-1 Low Early ambulation 2 Moderate Order ONE of the following: *Sequential Compression Device (SCD) *Heparin 5000 units SQ BID 3-4 Higher Order ONE of the following medications: *Heparin 5000 units SQ TID *Enoxaparin/Lovenox 40 mg SQ daily (WT < 150 kg, CrCl > 30 mL/min) *Enoxaparin/Lovenox 30 mg SQ daily (WT < 150 kg, CrCl > 10-29 mL/min) *Enoxaparin/Lovenox 30 mg SQ BID (WT < 150 kg, CrCl > 30 mL/min) AND/OR *Sequential Compression Device (SCD) 5 or more Highest Order ONE of the following medications: *Heparin 5000 units SQ TID (Preferred with Epidurals) *Enoxaparin/Lovenox 40 mg SQ daily (WT < 150 kg, CrCl > 30 mL/min) *Enoxaparin/Lovenox 30 mg SQ daily (WT < 150 kg, CrCl > 10-29 mL/min) *Enoxaparin/Lovenox 30 mg SQ BID (WT < 150 kg, CrCl > 30 mL/min) AND *Sequential Compression Device (SCD) Data Data Vital Signs Reviewed: Yes Orders Orders Admit To Inpatient (07/20/17 ) Diet Npo (07/20/17 Lunch) Vital Signs (Adult) RAQUEL.[id number]-HUOTO AWAKE (07/20/17 10:52) Heart RAQUEL.QSHIFT (07/20/17 10:52) Activity Oob Ad Dana (07/20/17 10:52) Acetaminophen (Tylenol) (07/20/17 11:00) Ibirbvew-Tyj-Nivdj-Iron Prenat (Stuartna (07/21/17 09:00) Sodium Chloride 0.9% Flush (Ns Flush) (07/20/17 21:00) Sodium Chloride 0.9% Flush (Ns Flush) (07/20/17 11:00) Zolpidem (Ambien) (07/20/17 11:00) Ondansetron Odt (Zofran Odt) (07/20/17 11:00) Ondansetron Inj (Zofran Inj) (07/20/17 11:00) Ob/Psych Drug Screen, Urine (07/20/17 10:52) Betamethasone Inj (Celestone Soluspan In (07/20/17 11:00) Code Status (07/20/17 10:52) Intake + Output Q6H (07/20/17 10:52) Notify Parameters (07/20/17 10:52) Nifedipine (Procardia) (07/20/17 11:00) Nifedipine (Procardia) (07/20/17 11:15) Nifedipine (Procardia) (07/20/17 11:45) Cbc No Diff, Includes Plts (07/20/17 10:52) Comprehensive Metabolic Panel (07/20/17 10:52) Total Protein 24hr Urine (07/20/17 10:52) Creatinine 24 Hr Urine (07/20/17 10:52) Inpatient Certification (07/20/17 ) Ranitidine Liq (Zantac Liq) (07/20/17 11:00) ^ For Group B Beta Strep (+) M (07/20/17 10:58) Group B Beta Strep Scrn (Gbs) (07/20/17 10:58) Consult Neonatology (07/20/17 ) Labs labs: -03/09/2017 -Blood type O positive, antibody screen negative, hemoglobin 13.6, Platelets 316 , TSH 0.499, sickle cell screen negative, direct screen positive for THC, varicella nonimmune, rubella equivocal, VDRL nonreactive, urine culture no growth, hepatitis B surface antigen negative, HIV negative - Declines cystic fibrosis screening - Screen positive open neural tube defect - 06/21/2017 -Hemoglobin 11.4, 1 hour GTT 122, urine drug screen negative, HIV negative, hepatitis B surface antigen negative. Assessment/Plan Problem List: (1) Preeclampsia ICD Codes: O14.90 - Unspecified pre-eclampsia, unspecified trimester (2) Monochorionic diamniotic twin gestation ICD Codes: O30.039 - Twin , monochorionic/diamniotic, unspecified trimester Assessment and Plan 21-year-old G1 at 30w2d by 9wk US (GARRICK 09/26/17) 1. monochorionic diamniotic twin gestation: - Plan for 2x/d NST, 2x/wk BPP / UA dopplers (consulted M for this), consult NICU, SCDs, regular diet, IV access, T&S, nurse to collect GBS. - EFW today (07/20/17) A: 1704g (61%) MVP 2.5 cm, cephalic B: 1504g (37%) MVP 5.6 cm, cephalic. 8/8 BPP x2 today. 3. Preeclampsia w/o severe features: based on mild range BPs and 24hr urine of 549mg (07/11/17) - Patient aware of recommendations for inpatient management until delivery, goal for delivery is approximately 34 weeks. Based on position she would be a candidate for vaginal delivery, will further discuss with MFM to see their opinion on breech delivery of fetus B at current weight. - BMZ now and repeat in 24hrs for FLM - No need or mag at this time - Trend BPs, will consider starting BP medication given borderline BP, Strict I/ Os, 1-2x/week HELLP labs, on admission today WNL, will repeat 24hr urine while inpatient per MFM but will not private branch exchange service adviser. 3. SPONTD: was only 3.99 MoM, s/p normal AU x2 with MFM. 4. Varicella and Rubella non immune: vaccines . Azar Turcios MD July 20, 2017 11:03
[2017-07-20] MEDS: BETAMETHASONE SOD PHOS/ACETATE SUSP 30 MG/5 ML VIAL IM SCH (11:29)
[2017-07-20 11:43] LABS: HEMATOCRIT 34.7 % (35.0-46.0); HEMOGLOBIN 11.6 GM/DL (11.6-15.3); MEAN CORPUSCULAR HEMOGLOBIN 28.8 PG (27.0-34.0); MEAN CORPUSCULAR HGB CONC 33.5 % (32.0-36.0); MEAN PLATELET VOLUME 10.8 FL (7.0-11.0); PLATELET COUNT 188 TH/MM3 (150-450); RED BLOOD COUNT 4.03 MIL/MM3 (4.00-5.30); RED CELL DISTRIBUTION WIDTH 13.6 % (11.6-17.2); WHITE BLOOD COUNT 13.4 TH/MM3 (4.0-11.0)
[2017-07-20 12:01] LABS: ALBUMIN 2.4 GM/DL (3.4-5.0); AST (GOT) 12 U/L (16-38); BICARBONATE 23.7 MEQ/L (21.0-32.0); BLOOD UREA NITROGEN 7 MG/DL (7-18); CALCIUM 8.9 MG/DL (8.5-10.1); CHLORIDE 106 MEQ/L (98-107); CREATININE 0.41 MG/DL (0.50-1.00); GLOMERULAR FILTRATION RATE 198 ML/MIN (>89); GLUCOSE,RANDOM 72 MG/DL (74-106); SODIUM (NA) 140 MEQ/L (136-145)
[2017-07-20 12:06] LABS: ALKALINE PHOSPHATASE 128 U/L (45-117); ALT (GPT) 15 U/L (9-42); TOTAL BILIRUBIN ADULT 0.2 MG/DL (0.2-1.0); TOTAL PROTEIN 5.7 GM/DL (6.4-8.2)
--- NOTE | 2017-07-20 19:15 | HHI.PR ---
Addendum to Inpatient Note Addendum Reason: Additional Documentation Additional Information Consult Maternal Hx: 21 y/o female at 30 weeks gestation with diagnosis of pre-eclampsia and [place] Di Twins EDC of 09/25/17 Family history negative for genetic or inherited disorders Maternal Labs: Blood type O+ Rubella equivocal RPR non-reactive Hepatitis B negative HIV negative GBS pending Maternal Medications: ASA, FE, Calcium Betamethasone 07/20/17 with another dose due on 07/21/17 Discussion: Dr. Jesus met with mother regarding threatened delivery at 30 weeks gestation secondary to pre-eclampsia with mono-di twin . This consultation included generalized care of the baby in the NICU, common problems, complications and survival and/or disability potential if delivered at this time. Additionally, there was a discussion of the disease processes that may affect an infant of this gestation, including but not limited to respiratory distress, infection and nutritional concerns. Discussion detailed various forms of respiratory support for immature lungs including use of surfactant and placement of umbilical catheters and/or PICC lines. Discussion focused on CPAP and/or ventilator support as needed for an of this gestation. There was a review of nutritional support challenges including IV and gavage feeding. There was discussion regarding of possible feeding intolerances and intestinal complications, including necrotizing enterocolitis a potential cause of serious illness and . Breast feeding and early breast milk pumping was strongly encouraged. Explained that infant is at risk for hyperbilirubinemia and may require treatment with phototherapy. There is a possibility that that baby could need a blood transfusion, which would be addressed in greater detail should the need arise. As the baby matures , it was explained that eye exams would be obtained to evaluate the immature eye for retinopathy of prematurity (ROP). There was a review of the potential for intraventricular hemorrhage (IVH), sonogram testing and subsequent risk of neurodevelopmental delay. It was explained that there is an increased potential for neurodevelopmental delay secondary to prematurity itself, even if the infant does not have IVH or ROP. Support systems in place at [facility] were reviewed and included , Case Management and Ministry which the family may utilize. Expected discharge would likely occur closer ti the due date if the infant has an uncomplicated hospitalization. Greater than 50% of the consultation time was spent with the patient. Total consult time was 50 minutes. Karolyn Roberson July 20, 2017 19:15
[2017-07-21] VITALS (10 sets, daily range): BP systolic 135–158; BP diastolic 87–99; PULSE 90–110; RESP 18; TEMP 97.2–98
--- NOTE | 2017-07-21 07:49 | HHI.PR ---
MARKETING SECRETARY Note Note S: doing well, no contractions, no PECK, vision changes, epigastric or RUQ pain, + FM. O: VS: BP range since admision 149-156/88-97 LE: SCDs on, DTRs 1+ bilaterally FHTs: A: BL 120s, moderate variability, accelerations present, no decelerations. B: BL 120s, moderate variability, accelerations present, no decelerations. [place]: rare contractions A/P: 21-year-old G1 at 30w3d by 9wk US (GARRICK 09/26/17) 1. John gestation: - 2x/day NST, 2x/week BPP / UA dopplers, s/p NICU consult - EFW (07/20/17) A: 1704g (61%) MVP 2.5 cm, cephalic B: 1504g (37%) MVP 5.6 cm, cephalic. 3. Preeclampsia w/o severe features: based on mild range BPs and 24hr urine of 549mg (07/11/17) - Plan is for inpatient management until delivery, goal for delivery is approximately 34 weeks. Based on positions she would be a candidate for vaginal delivery, will further discuss with MFM to see their opinion on breech delivery of fetus B at current weight. - s/p BMZ #1, #2 today for FLM - No need or mag at this time - BPs mild range, consider starting BP medication if consistently above 150 systolic and or 100 diastolic. Strict I/Os, 1-2x/week HELLP labs, on admission today WNL, will repeat 24hr urine while inpatient per MFM but will not exchange architect. 3. SPONTD: was only 3.99 MoM, s/p normal AU x2 with MFM. 4. Varicella and Rubella non immune: vaccines . Azar Turcios MD July 21, 2017 07:48
[2017-07-21] MEDS: MULTIVIT/MIN/PREN/FOL AC/IRON PRENATAL TAB PO SCH (08:53)
[2017-07-21] MEDS: SODIUM CHLORIDE 0.9% FLUSH 10 ML FLUSH IV FLUSH SCH (08:54)
[2017-07-21] MEDS: BETAMETHASONE SOD PHOS/ACETATE SUSP 30 MG/5 ML VIAL IM SCH (11:43)
[2017-07-21 12:41] LABS: CREATININE 24 HOUR, URINE 2.04 GM/24HR (0.63-2.50)
[2017-07-22] MEDS ORDERED: FERROUS SULFATE 325 MG (65 MG ELEMENTAL IRON) TAB PO ONE (06:45)
--- NOTE | 2017-07-22 07:28 | PD.OB.ANTE ---
Subjective Diagnosis: (1) Preeclampsia (2) Monochorionic diamniotic twin gestation Interval History No new c/o, doing well Objective Vital Signs Vital Signs Date Time Temp Pulse Resp B/P (MAP) Pulse Ox O2 Delivery O2 Flow Rate FiO2 07/21/17 19:53 110 153/96 (115) 07/21/17 19:41 104 158/99 (118) 07/21/17 12:58 109 135/91 (106) 07/21/17 12:57 18 07/21/17 12:57 97.8 07/21/17 09:00 94 138/88 (105) 07/21/17 08:16 18 07/21/17 08:15 98.0 Lab & Micro Results Date/Time Source Procedure Growth Status 07/20/17 13:43 Genital Vaginal Group B Streptococcus Screen - Preliminary RESULTS PENDING Resulted Physical Exam GENERAL: Well-nourished, well-developed patient. CARDIOVASCULAR: Regular rate and rhythm without murmurs, gallops, or rubs. RESPIRATORY: Breath sounds equal bilaterally. No accessory muscle use. ABDOMEN/GI: Abdomen soft, non-tender. FHT's: Category:1 x2 EXTREMITIES: No cyanosis or edema, non-tender, without signs of DVT. Assessment and Plan Problem List: (1) Preeclampsia ICD Codes: O14.90 - Unspecified pre-eclampsia, unspecified trimester (2) Monochorionic diamniotic twin gestation ICD Codes: O30.039 - Twin , monochorionic/diamniotic, unspecified trimester Assessment and Plan 21-year-old G1 at 30w2d by 9wk US (GARRICK 09/26/17) 1. monochorionic diamniotic twin gestation: - Plan for 2x/d NST, 2x/wk BPP / UA dopplers (consulted M for this), consult NICU, SCDs, regular diet, IV access, T&S, nurse to collect GBS. - EFW today (07/20/17) A: 1704g (61%) MVP 2.5 cm, cephalic B: 1504g (37%) MVP 5.6 cm, cephalic. 8/8 BPP x2 today. 3. Preeclampsia w/o severe features: based on mild range BPs and 24hr urine of 549mg (07/11/17) - Patient aware of recommendations for inpatient management until delivery, goal for delivery is approximately 34 weeks. Based on position she would be a candidate for vaginal delivery, will further discuss with MFM to see their opinion on breech delivery of fetus B at current weight. - BMZ now and repeat in 24hrs for FLM - No need or mag at this time - Trend BPs, will consider starting BP medication given borderline BP, Strict I/ Os, 1-2x/week HELLP labs, on admission today WNL, will repeat 24hr urine while inpatient per MFM but will not oil changer. 3. SPONTD: was only 3.99 MoM, s/p normal AU x2 with MFM. 4. Varicella and Rubella non immune: vaccines . 07/22/17 303/7 weeks, twins, STABLE, no c/o, CPM. Bridger Ordonez MD July 22, 2017 07:27
[2017-07-22] MEDS: SODIUM CHLORIDE 0.9% FLUSH 10 ML FLUSH IV FLUSH SCH ×2 (09:00→19:44)
[2017-07-22 09:10] VITALS: BP 132/85; PULSE 95
[2017-07-22 10:00] VITALS: RESP 17
[2017-07-22] MEDS: MULTIVIT/MIN/PREN/FOL AC/IRON PRENATAL TAB PO SCH (10:00)
--- NOTE | 2017-07-22 10:19 | HHI.PR ---
CIVIL ENGINEERING PROJECT MANAGER Note Note S: doing well, no contractions, no PECK, vision changes, epigastric or RUQ pain, + FM. O: VS: BP range x 24hr, 132-153/77-91 LE: SCDs on, DTRs 1+ bilaterally FHTs: A: BL 130s, moderate variability, accelerations present, no decelerations. B: BL 140s, moderate variability, accelerations present, no decelerations. [place]: rare contractions A/P: 21-year-old G1 at 30w3d by 9wk US (GARRICK 09/26/17) 1. John gestation: - 2x/day NST, 2x/week BPP / UA dopplers, s/p NICU consult - EFW (07/20/17) A: 1704g (61%) MVP 2.5 cm, cephalic B: 1504g (37%) MVP 5.6 cm, cephalic. 3. Preeclampsia w/o severe features: based on mild range BPs and 24hr urine of 549mg (07/11/17), repeat 3556mg (07/21/17) - Plan is for inpatient management until delivery, goal for delivery is approximately 34 weeks. Based on positions she would be a candidate for vaginal delivery, talked with MFM yesterday and if baby B is non vertex it would be to the experience and comfort level of the delivering physician. The patient is aware of this. - BMZ complete (07/22) - No need or mag at this time - BPs mild range, consider starting BP medication if consistently above 150 systolic and or 100 diastolic. Strict I/Os (reinforced this with nursing as none documented), 1-2x/week HELLP labs (ordered for tuesday), WNL on admission 3. SPONTD: was only 3.99 MoM, s/p normal AU x2 with MFM. 4. Varicella and Rubella non immune: vaccines . Azar Turcios MD July 22, 2017 10:19
[2017-07-22 11:08] VITALS: TEMP 98
[2017-07-22] MEDS: ZOLPIDEM TARTRATE 5 MG TAB PO PRN (23:45)
[2017-07-23 08:14] LABS: AUTOMATED NEUTROPHIL # 12.7 TH/MM3 (1.8-7.7); BASOPHIL % 0.2 % (0.0-2.0); EOSINOPHIL % 0.3 % (0.0-4.0); HEMATOCRIT 30.5 % (35.0-46.0); HEMOGLOBIN 10.5 GM/DL (11.6-15.3); LYMPH % 16.2 % (9.0-44.0); LYMPHOCYTE # 2.7 TH/MM3 (1.0-4.8); MEAN CELL VOLUME 85.9 FL (80.0-100.0); MEAN CORPUSCULAR HEMOGLOBIN 29.7 PG (27.0-34.0); MEAN CORPUSCULAR HGB CONC 34.5 % (32.0-36.0); MEAN PLATELET VOLUME 11.3 FL (7.0-11.0); MONO % 7.3 % (0.0-8.0); MONOCYTE # 1.2 TH/MM3 (0-0.9); PLATELET COUNT 188 TH/MM3 (150-450); RED BLOOD COUNT 3.55 MIL/MM3 (4.00-5.30); RED CELL DISTRIBUTION WIDTH 13.6 % (11.6-17.2); WHITE BLOOD COUNT 16.7 TH/MM3 (4.0-11.0)
[2017-07-23] MEDS: SODIUM CHLORIDE 0.9% FLUSH 10 ML FLUSH IV FLUSH SCH ×2 (08:50→19:46)
[2017-07-23] MEDS: MULTIVIT/MIN/PREN/FOL AC/IRON PRENATAL TAB PO SCH (09:00)
[2017-07-23 09:11] LABS: ALBUMIN 2.2 GM/DL (3.4-5.0); AST (GOT) 16 U/L (16-38); BICARBONATE 23.2 MEQ/L (21.0-32.0); BLOOD UREA NITROGEN 6 MG/DL (7-18); CALCIUM 8.4 MG/DL (8.5-10.1); CHLORIDE 107 MEQ/L (98-107); CREATININE 0.43 MG/DL (0.50-1.00); GLOMERULAR FILTRATION RATE 187 ML/MIN (>89); GLUCOSE,RANDOM 78 MG/DL (74-106); SODIUM (NA) 141 MEQ/L (136-145)
[2017-07-23 09:12] LABS: ALT (GPT) 17 U/L (9-42)
[2017-07-23 09:14] LABS: ALKALINE PHOSPHATASE 120 U/L (45-117); TOTAL BILIRUBIN ADULT 0.2 MG/DL (0.2-1.0); TOTAL PROTEIN 5.3 GM/DL (6.4-8.2)
--- NOTE | 2017-07-23 14:54 | HHI.PR ---
GANDY DANCER Note Note Doing well, No h/a, scotoma or RUQ pain Swelling in feet better Good bowel function PE Abd is soft and non tender Fundus is not tender and soft Ext +1 LE swelling looks better from last night. Tracing Both babies are reactive and no decels, No contractions A/P: 1. Twin gestation at 30/5 weeks 2. Mild pre eclampsia would recollect urine protein for 24 hours and would give some magnesium for neuroprotection. No severe symptoms at this time. Will continue to follow and the labs today are WNL. 3. Anemia.. consider venofer in near future. Kalina Wallace MD July 23, 2017 14:54
[2017-07-23] MEDS ORDERED: CALCIUM GLUCONATE 10% 1 GM/10 ML VIAL IV PUSH PRN (15:00)
[2017-07-23] MEDS: MAGNESIUM SULFATE 40 GM PREMIX 1,000 ML IV SCH (16:22)
[2017-07-23] MEDS: FERROUS SULFATE 325 MG (65 MG ELEMENTAL IRON) TAB PO SCH (21:00)
[2017-07-24] MEDS: ZOLPIDEM TARTRATE 5 MG TAB PO PRN (00:05)
[2017-07-24] MEDS: FERROUS SULFATE 325 MG (65 MG ELEMENTAL IRON) TAB PO SCH ×2 (09:16→21:08)
[2017-07-24] MEDS: MULTIVIT/MIN/PREN/FOL AC/IRON PRENATAL TAB PO SCH (09:16)
[2017-07-24] MEDS: SODIUM CHLORIDE 0.9% FLUSH 10 ML FLUSH IV FLUSH SCH ×2 (09:16→21:09)
[2017-07-24] MEDS: MAGNESIUM SULFATE 40 GM PREMIX 1,000 ML IV SCH (10:56)
--- NOTE | 2017-07-24 13:24 | HHI.PR ---
HOME HELP AIDE Note Note IUP @ 30/6 weeks Doing well. Denies headache, scotoma.RUQ pain or swelling in face or hands Good bowel function and is taking her fe Did not do so well with the Magnesium but feeling better now Good movement. PE BP 144/90, 142/93, P is 108, T is 98, R is 18 Abd is soft and non tender Ext small LE swelling. DTR are +1 Tracing this am both babies look good but are hard to monitor. Will ask the nurse to get another tracing A/P 1. Twins at 30/6 weeks 2. Preeclampsia no severe features yet. Bp are labile and a couple are high but not severe The vitals are not crossing over but I reviewed them. She has had 12 hours of magnesium for neuroprotection. Repeat 24 hour protein was done today. will check in the am. 3. Anemia would benifit from some venofer as she is likely to get a C/S and she is a redhead Kalina Wallace MD July 24, 2017 13:24
[2017-07-24] MEDS: IRON SUCROSE INJ 100 MG in SODIUM CHLORIDE 0.9% INJ 100 ML IV SCH (14:19)
[2017-07-24 19:05] VITALS: BP 147/79; PULSE 94
[2017-07-24 20:00] VITALS: RESP 18; TEMP 98.8
[2017-07-25] VITALS (12 sets, daily range): BP systolic 147–157; BP diastolic 93–102; PULSE 81–102; TEMP 97.8–98.6
[2017-07-25 05:58] LABS: AUTOMATED NEUTROPHIL # 11.2 TH/MM3 (1.8-7.7); BASOPHIL % 0.3 % (0.0-2.0); EOSINOPHIL # 0.1 TH/MM3 (0-0.4); EOSINOPHIL % 0.5 % (0.0-4.0); HEMATOCRIT 31.7 % (35.0-46.0); HEMOGLOBIN 10.8 GM/DL (11.6-15.3); LYMPH % 17.2 % (9.0-44.0); LYMPHOCYTE # 2.6 TH/MM3 (1.0-4.8); MEAN CELL VOLUME 85.9 FL (80.0-100.0); MEAN CORPUSCULAR HEMOGLOBIN 29.2 PG (27.0-34.0); MEAN CORPUSCULAR HGB CONC 33.9 % (32.0-36.0); MEAN PLATELET VOLUME 10.7 FL (7.0-11.0); MONO % 7.6 % (0.0-8.0); MONOCYTE # 1.1 TH/MM3 (0-0.9); NEUT % 74.4 % (16.0-70.0); PLATELET COUNT 189 TH/MM3 (150-450); RED BLOOD COUNT 3.69 MIL/MM3 (4.00-5.30); RED CELL DISTRIBUTION WIDTH 13.6 % (11.6-17.2)
[2017-07-25 06:20] LABS: ALBUMIN 1.8 GM/DL (3.4-5.0); AST (GOT) 16 U/L (16-38); BICARBONATE 24.1 MEQ/L (21.0-32.0); BLOOD UREA NITROGEN 7 MG/DL (7-18); CALCIUM 8.7 MG/DL (8.5-10.1); CHLORIDE 106 MEQ/L (98-107); CREATININE 0.39 MG/DL (0.50-1.00); GLOMERULAR FILTRATION RATE 210 ML/MIN (>89); GLUCOSE,RANDOM 75 MG/DL (74-106); SODIUM (NA) 140 MEQ/L (136-145)
[2017-07-25 06:22] LABS: ALT (GPT) 20 U/L (9-42)
[2017-07-25 06:23] LABS: ALKALINE PHOSPHATASE 120 U/L (45-117); TOTAL BILIRUBIN ADULT 0.1 MG/DL (0.2-1.0)
--- NOTE | 2017-07-25 08:02 | HHI.PR ---
ALLIANCE CONSULTANT Note Note S: doing well, no contractions, no PECK, vision changes, epigastric or RUQ pain, + FM. O: VS: BP range x 24hr, 141-148/87-101 LE: SCDs on, DTRs 1+ bilaterally FHTs: Last night A: BL 130s, moderate variability, accelerations present, no decelerations. B: BL 140s, moderate variability, accelerations present, no decelerations. [place]: no contractions A/P: 21-year-old G1 at 31w0d by 9wk US (GARRICK 09/26/17) 1. John gestation: - 2x/day NST, 2x/week BPP / UA dopplers, s/p NICU consult - EFW (07/20/17) A: 1704g (61%) MVP 2.5 cm, cephalic B: 1504g (37%) MVP 5.6 cm, cephalic. - Concordant growth (11%), Female fetus x2 - GBS neg (07/20) 3. Preeclampsia w/o severe features: based on mild range BPs and 24hr urine of 549mg (07/11/17), repeat 3556mg (07/21/17), was repeated over the weekend by covering MD at > 5mg, will no bladder changer. - Plan is for inpatient management until delivery b/c of increased risk with john preg, prec, and borderline CAS on baby A, goal for delivery is approximately 34 weeks. Based on positions she would be a candidate for vaginal delivery, talked with MFM yesterday and if baby B is non vertex it would be to the experience and comfort level of the delivering physician. The patient is aware of this. Briefly discussed that if ANT this week stable and CAS improved and labs / BPs stable may consider resuming outpatient management. - BMZ complete (07/22) - No need or mag at this time, was giving mag for neuroprotection over the weekend but plan was not for delivery. - BPs mild range, consider starting BP medication if consistently above 150 systolic and or 100 diastolic. Strict I/Os (reinforced this with nursing as none documented), 1-2x/week HELLP labs, stable and WNL today. Repeat on . 3. SPONTD: was only 3.99 MoM, s/p normal AU x2 with MFM. 4. Varicella and Rubella non immune: vaccines . 5. Suspected Fe def anemia: give IV Fe over the weekend, will continue PO replacement. TPlacidoS Azar Turcios MD July 25, 2017 08:02
[2017-07-25] MEDS ORDERED: IRON SUCROSE INJ 100 MG in SODIUM CHLORIDE 0.9% INJ 100 ML IV SCH (09:00)
[2017-07-25] MEDS: FERROUS SULFATE 325 MG (65 MG ELEMENTAL IRON) TAB PO SCH ×2 (09:08→21:55)
[2017-07-25] MEDS: MULTIVIT/MIN/PREN/FOL AC/IRON PRENATAL TAB PO SCH (09:08)
[2017-07-25] MEDS: SODIUM CHLORIDE 0.9% FLUSH 10 ML FLUSH IV FLUSH SCH ×2 (09:08→21:57)
[2017-07-25] MEDS: IRON SUCROSE INJ 100 MG in SODIUM CHLORIDE 0.9% INJ 100 ML IV SCH (10:03)
[2017-07-26] VITALS (11 sets, daily range): BP systolic 128–153; BP diastolic 78–96; PULSE 80–92; RESP 14–16; TEMP 98–98.3
--- NOTE | 2017-07-26 08:07 | HHI.PR ---
HEALTH CARE FACILITY ADMINISTRATOR Note Note S: doing well, no contractions, no PECK, vision changes, epigastric or RUQ pain, + FM, having some mons edema and some tenderness O: VS: BP range x 24hr, 145-157/88-102 LE: SCDs on, DTRs 1+ bilaterally : external genitalia WNL, mons with some edema, no erythema. FHTs: This AM A: BL 140s, moderate variability, accelerations present, no decelerations. B: BL 140s, moderate variability, accelerations present, no decelerations. [place]: no contractions A/P: 21-year-old G1 at 31w1d by 9wk US (GARRICK 09/26/17) 1. John gestation: Reactive NST x2 this AM - 2x/day NST, 2x/week BPP / UA dopplers, s/p NICU consult - EFW (07/20/17) A: 1704g (61%) MVP 2.5 cm, cephalic B: 1504g (37%) MVP 5.6 cm, cephalic. - Concordant growth (11%), Female fetus x2 - GBS neg (07/20) - On 07/25, BPP 8/8 x2, MVP A = 2.8, MVP B = 6.4, UA dop WNL, cephalic cephalic 3. Preeclampsia w/o severe features: based on mild range BPs and 24hr urine of 549mg (07/11/17), repeat 3556mg (07/21/17), was repeated over the weekend by covering MD at > 5mg, will no microsoft exchange administrator. - Plan is for inpatient management until delivery b/c of increased risk with john preg, prec, and borderline CAS on baby A, goal for delivery is approximately 34 weeks or earlier depending on maternal and/or status. Based on positions she would be a candidate for vaginal delivery, talked with MFM and if baby B is non vertex it would be to the experience and comfort level of the delivering physician. The patient is aware of this. Briefly discussed that if ANT this week stable and CAS improved and labs / BPs stable may consider resuming outpatient management. - BMZ complete (07/22) - No need for mag at this time, was given mag for neuroprotection over the weekend but plan was not for delivery. - BPs mild range, will consider starting BP medication if consistently above 150 systolic and or 100 diastolic. Strict I/Os (adequate output over past 24hrs) , 2x/week HELLP labs, stable and WNL 07/25. Repeat on . 3. SPONTD: was only 3.99 MoM, s/p normal AU x2 with MFM. 4. Varicella and Rubella non immune: vaccines . 5. Suspected Fe def anemia: give IV Fe over the weekend, will continue PO replacement. T&S Azar Turcios MD July 26, 2017 08:07
[2017-07-26] MEDS: MULTIVIT/MIN/PREN/FOL AC/IRON PRENATAL TAB PO SCH (09:28)
[2017-07-26] MEDS: FERROUS SULFATE 325 MG (65 MG ELEMENTAL IRON) TAB PO SCH ×2 (09:28→21:04)
[2017-07-26] MEDS: SODIUM CHLORIDE 0.9% FLUSH 10 ML FLUSH IV FLUSH SCH ×2 (09:28→21:04)
[2017-07-26] MEDS: IRON SUCROSE INJ 100 MG in SODIUM CHLORIDE 0.9% INJ 100 ML IV SCH (10:09)
[2017-07-26] MEDS: ZOLPIDEM TARTRATE 5 MG TAB PO PRN (23:06)
[2017-07-27] VITALS (15 sets, daily range): BP systolic 123–153; BP diastolic 69–96; PULSE 65–97; RESP 16–18; TEMP 97.6–98.6
--- NOTE | 2017-07-27 07:07 | HHI.PR ---
PATIENT SERVICES REPRESENTATIVE Note Note S: no change from yesterday, doing well, no contractions, no PECK, vision changes , epigastric or RUQ pain, + FM, O: VS: BP range x 24hr, 128-153/76-96 LE: SCDs on, DTRs 1+ bilaterally FHTs: yesterday PM A: BL 130s, moderate variability, accelerations present, no decelerations. B: BL 140s, moderate variability, accelerations present, no decelerations. [place]: no contractions A/P: 21-year-old G1 at 31w2d by 9wk US (GARRICK 09/26/17) 1. John gestation: Reactive NST x2 yesterday PM - 2x/day NST, 2x/week BPP / UA dopplers, s/p NICU consult - EFW (07/20/17) A: 1704g (61%) MVP 2.5 cm, cephalic B: 1504g (37%) MVP 5.6 cm, cephalic. - Concordant growth (11%), Female fetus x2 - GBS neg (07/20) - On 07/25, BPP 8/8 x2, MVP A = 2.8, MVP B = 6.4, UA dop WNL, cephalic / cephalic 3. Preeclampsia w/o severe features: based on mild range BPs and 24hr urine of 549mg (07/11/17), repeat 3556mg (07/21/17), was repeated over the weekend by covering MD at > 5mg, will no warp changer. - Plan is for inpatient management until delivery b/c of increased risk with john preg, prec, and borderline CAS on baby A, goal for delivery is approximately 34 weeks or earlier depending on maternal and/or status. Based on positions she would be a candidate for vaginal delivery, talked with MFM and if baby B is non vertex it would be to the experience and comfort level of the delivering physician. The patient is aware of this. Briefly discussed that if ANT this week stable and CAS improved and labs / BPs stable may consider resuming outpatient management. - BMZ complete (07/22) - No need for mag at this time, was given mag for neuroprotection over the weekend but plan was not for delivery. - BPs mild range, will consider starting BP medication if consistently above 150 systolic and or 100 diastolic. Strict I/Os (adequate output over past 24hrs) , 2x/week HELLP labs, stable and WNL 07/25. Repeat on . 3. SPONTD: was only 3.99 MoM, s/p normal AU x2 with MFM. 4. Varicella and Rubella non immune: vaccines . 5. Suspected Fe def anemia: given IV Fe over the weekend, will continue PO replacement. T&S Azar Turcios MD July 27, 2017 07:07
[2017-07-27] MEDS: MULTIVIT/MIN/PREN/FOL AC/IRON PRENATAL TAB PO SCH (09:00)
[2017-07-27] MEDS: SODIUM CHLORIDE 0.9% FLUSH 10 ML FLUSH IV FLUSH SCH ×2 (09:00→21:00)
[2017-07-27] MEDS: FERROUS SULFATE 325 MG (65 MG ELEMENTAL IRON) TAB PO SCH ×2 (09:00→22:55)
[2017-07-28] VITALS (10 sets, daily range): BP systolic 107–151; BP diastolic 74–98; PULSE 81–92; RESP 17–23; TEMP 97.7–98.2; O2SAT 99–100
[2017-07-28 06:03] LABS: HEMOGLOBIN 11.7 GM/DL (11.6-15.3); MEAN CELL VOLUME 86.4 FL (80.0-100.0); MEAN CORPUSCULAR HGB CONC 33.5 % (32.0-36.0); MEAN PLATELET VOLUME 10.9 FL (7.0-11.0); PLATELET COUNT 209 TH/MM3 (150-450); RED BLOOD COUNT 4.05 MIL/MM3 (4.00-5.30); RED CELL DISTRIBUTION WIDTH 13.7 % (11.6-17.2)
[2017-07-28 06:21] LABS: ALT (GPT) 28 U/L (9-42); AST (GOT) 28 U/L (16-38); BICARBONATE 24.9 MEQ/L (21.0-32.0); BLOOD UREA NITROGEN 5 MG/DL (7-18); CALCIUM 8.7 MG/DL (8.5-10.1); CHLORIDE 107 MEQ/L (98-107); CREATININE 0.39 MG/DL (0.50-1.00); GLOMERULAR FILTRATION RATE 210 ML/MIN (>89); GLUCOSE,RANDOM 74 MG/DL (74-106); SODIUM (NA) 141 MEQ/L (136-145)
[2017-07-28 06:23] LABS: ALKALINE PHOSPHATASE 144 U/L (45-117); TOTAL BILIRUBIN ADULT LESS THAN 0.1 MG/DL (0.2-1.0); TOTAL PROTEIN 5.4 GM/DL (6.4-8.2)
[2017-07-28] MEDS: MULTIVIT/MIN/PREN/FOL AC/IRON PRENATAL TAB PO SCH (08:07)
[2017-07-28] MEDS: SODIUM CHLORIDE 0.9% FLUSH 10 ML FLUSH IV FLUSH SCH ×2 (08:07→21:19)
[2017-07-28] MEDS: FERROUS SULFATE 325 MG (65 MG ELEMENTAL IRON) TAB PO SCH (08:07)
[2017-07-28] MEDS ORDERED: diphenhydrAMINE HCL 25 MG CAP PO PRN (09:45)
--- NOTE | 2017-07-28 10:03 | HHI.PR ---
COVERED BUCKLE ASSEMBLER Note Note S: pt had some RUQ pain that started this AM, is more inferior to her breast, is sharp, no associated with a meals, did not eat this AM, some nausea which has improved with zofran, some itching on arms, leg and neck, no anglin or plantar itching, also has a rash on legs and arm, no contractions, no PECK, vision changes, epigastric, + FM, O: VS: BP range x 24hr,134-176/69-102 Abdomen: no TTP, there is tenderness to right inframamary area. LE: SCDs on, DTRs 1+ bilaterally Skin: erythematous small macules on lateral thighs and arms. : per nursing 2-3cm/50%/-3 FHTs: this AM A: BL 130s, moderate variability, accelerations present, no decelerations. B: BL 150s, moderate variability, accelerations present, no decelerations. [place]: no contractions A/P: 21-year-old G1 at 31w3d by 9wk US (GARRICK 09/26/17) 1. John gestation: Reactive NST x2 today - 2x/day NST, 2x/week BPP / UA dopplers, s/p NICU consult - EFW (07/20/17) A: 1704g (61%) MVP 2.5 cm, cephalic B: 1504g (37%) MVP 5.6 cm, cephalic. - Concordant growth (11%), Female fetus x2 - GBS neg (07/20) - Today BPP: BPP 6/8 for A, MVP 1.9, 8/8 for B, cephalic / cephalic 3. Preeclampsia w/o severe features: based on mild range BPs and 24hr urine of 549mg (07/11/17), repeat 3556mg (07/21/17), was repeated over the weekend by covering MD at > 5mg. - Plan is for delivery today based on new findings of oligo for baby A in the setting of her other complications. Discussed this with the patient the options for delivery, after long discussion on maternal and benefits of vaginal delivery with the knowledge of a likely prolonged IOL and still possible and/or breech delivery and the risks of this, she ultimately decided to proceed with primary by maternal request, pt is now NPO, begin mag for neuroprotection, will plan for around 7-8pm today. Likely due to her comorbidities and now going to be post op will begin pp lovenox for VTE ppx. - BMZ complete (07/22) - BPs mild range, will consider starting BP medication if consistently above 150 systolic and or 100 diastolic. Strict I/Os (adequate output over past 24hrs) , HELLP labs this AM stable and WNL. 3. SPONTD: was only 3.99 MoM, s/p normal AU x2 with MFM. 4. Varicella and Rubella non immune: vaccines . 5. Suspected Fe def anemia: given IV Fe over the weekend, will continue PO replacement. T&S 6. rash / pruritis: Benadryl PRN, likely contact dermatitis, will consider prednisone if no improvement. 7. Right chest wall pain: given her clinical picture could related to her liver and prec, HELLP labs WNL this am, will begin protonix, if persistent consider RUQ US, discussed that if has persistent RUQ pain would be criteria for delivery. Azar Turcios MD July 28, 2017 10:03
[2017-07-28] MEDS ORDERED: LACTATED RINGER'S 1000 ML INJ 1,000 ML IV SCH (11:56)
[2017-07-28] MEDS ORDERED: MAGNESIUM SULFATE 40 GM PREMIX 1,000 ML IV SCH (11:56)
[2017-07-28] MEDS ORDERED: LACTATED RINGER'S 1000 ML INJ 1,000 ML IV ONE (12:00)
[2017-07-28] MEDS ORDERED: ceFAZolin INJ 1,000 MG VIAL IV ONE (12:00)
[2017-07-28] MEDS ORDERED: ONDANSETRON HCL 4 MG/2 ML VIAL IV ONE (12:00)
[2017-07-28] MEDS ORDERED: OXYTOCIN 10 UNIT/ML AMP IV ONE (12:00)
[2017-07-28] MEDS ORDERED: MAGNESIUM SULFATE 4 GM PREMIX 100 ML IV ONE (12:00)
[2017-07-28] MEDS ORDERED: DEXAMETHASONE SOD PHOS 4 MG/ML VIAL IV ONE (12:00)
[2017-07-28] MEDS ORDERED: PANTOPRAZOLE SOD 20 MG DELAYED RELEASE TAB PO SCH (12:00)
[2017-07-28] MEDS ORDERED: CALCIUM GLUCONATE 10% 1 GM/10 ML VIAL IV PUSH PRN (12:00)
[2017-07-28] MEDS ORDERED: PHENYLEPH/NS 1000 MCG/10 ML SYR IV ONE (12:00)
[2017-07-28] MEDS ORDERED: KETOROLAC TROMETHAMINE 30 MG/ML (IVP) VIAL IV PUSH ONE ×2 (12:00→19:30)
[2017-07-28] MEDS ORDERED: ceFAZolin 2 GM PREMIX 50 ML IV SCH (13:30)
[2017-07-28] MEDS ORDERED: CITRIC ACID-SODIUM CITRATE LIQ 30 ML UDC PO SCH (14:00)
[2017-07-28] MEDS ORDERED: MORPHINE SULFATE PF 5 MG/10 ML VIAL ONE (19:15)
[2017-07-28] MEDS ORDERED: ACETAMINOPHEN 1000 MG/100 ML 100 ML IV ONE (19:15)
--- NOTE | 2017-07-28 19:16 | PD.OB.DELI ---
Procedure Note Section Procedure Pre Op Diagnosis: (1) 31 weeks gestation of (2) Preeclampsia (3) Monochorionic diamniotic twin gestation Post Op Diagnosis: (1) delivery delivered (2) 31 weeks gestation of (3) Monochorionic diamniotic twin gestation (4) Preeclampsia Performed by Azar Turcios Procedure: Primary Low Transverse Sec Indication for delivery: Other (maternal request) Informed consent obtained: For anesthesia, For procedure Confirmed correct: Patient, Procedure, Site, Time-out taken Anesthesia: Spinal Medication prior to procedure: As documented in eMAR, Antacids, Antibiotics, IV , Magnesium Sulfate (for neuroprotection) Monitoring during procedure: Blood pressure monitoring, Pulse oximetry Urinary catheter: Inserted using sterile technique, ml urine output (400) Sterile preparation: Duraprep, In usual fashion Position: Supine with wedge to left side Operative Features Skin Incision: Pfannenstiel Uterine Incision: Low transverse w/knife / blunt ext Membranes Ruptured: Artificially, Appearance of fluid (clear) Presentation: Other (vertex / breech) Delivery date: July 28, 2017 Delivery time: 20:03 Delivery of infant: Uneventful : Female (x2, baby A at 2003 , baby B at 2006, APGARS pending NICU), Multiple Status of infant: Viable, Resuscitation required Placenta delivered: Intact Medications: Antibiotics (2g ancef pre op), Oxytocin (after delivery) Estimated blood loss: 700 Procedure tolerated: Well Maternal Complications: Other (none) Maternal Condition: Stable Baby Complications: Other (none other than prematurity ) Condition: Stable Procedure in detail dictation number: [id number] Azar Turcios MD July 28, 2017 19:16
[2017-07-28] MEDS ORDERED: IBUP-232 PO (19:20)
[2017-07-28] MEDS ORDERED: PERC5TAB12 PO (19:21)
[2017-07-28] MEDS ORDERED: ACETAMINOPHEN 325 MG TAB PO PRN (19:30)
[2017-07-28] MEDS ORDERED: SODIUM CHLORIDE 0.9% FLUSH 10 ML FLUSH IV FLUSH PRN (19:30)
[2017-07-28] MEDS ORDERED: ONDANSETRON HCL 4 MG/2 ML VIAL IV PUSH PRN (19:30)
[2017-07-28] MEDS ORDERED: OXYTOCIN 30 UNITS-500ML PREMIX 500 ML IV ONE (19:30)
[2017-07-28] MEDS: KETOROLAC TROMETHAMINE 30 MG/ML (IVP) VIAL IV PUSH SCH (19:30)
[2017-07-28] MEDS ORDERED: SIMETHICONE 80 MG CHEWABLE TAB PO PRN (19:30)
[2017-07-28] MEDS ORDERED: EPIDURAL-DO NOT ADMINISTER ANTICOAGULANTS PRN (19:40)
[2017-07-28] MEDS ORDERED: EPIDURAL-NALOXONE HCL 0.4 MG/ML AMP IV PUSH PRN (19:40)
[2017-07-28] MEDS ORDERED: EPIDURAL-NO SYSTEMIC NARCOTICS PRN (19:40)
[2017-07-28] MEDS ORDERED: EPIDURAL-DIPHENHYDRAMINE HCL 50 MG/ML VIAL IV PUSH PRN (19:40)
[2017-07-28] MEDS ORDERED: EPIDURAL-DIPHENHYDRAMINE HCL 50 MG CAP PO PRN (19:40)
--- NOTE | 2017-07-28 21:39 | MP ---
cc: Azar Turcios MD DATE OF OPERATION: 07/26/2017 PREOPERATIVE DIAGNOSES:. 1. Monochorionic Diamniotic gestation at 31 weeks and 3 days. 2. Oligohydramnios of baby A 3. Preeclampsia without severe features. 4. Maternal request for section. POSTOPERATIVE DIAGNOSES: 1. Monochorionic amniotic gestation at 31 weeks and 3 days. 2. Oligohydramnios of baby A. 3. Preeclampsia without severe features. 4. Maternal request for section. 5. Status post delivery SURGEON: Dr. Azar Turcios. ZINC PLATING MACHINE OPERATOR: [facility] labor and delivery scrub staff. PROCEDURE PERFORMED: Primary low transverse section. ANESTHESIA: Spinal with Astramorph. FINDINGS: 1. Viable female baby A at 2002, Apgars 7 and 8 at 1 and 5 min per NICU. Baby B at 2005 Apgars 2 and 8 at 1 and 5 min per NICU. 2. Intact placenta, 3-vessel cord x2 at 2006, umbilical cord of baby B had a large tortuosity, appeared to be varix in the mid segment of the cord. 3. Normal intra-abdominal anatomy, normal uterus, fallopian tubes, and enlarged normal appearing ovaries bilaterally. 4. Umbilical arterial and venous blood gases collected for baby A and baby B pending at time of dictation ESTIMATED BLOOD LOSS: 700 mL FLUID REPLACEMENT: 2 liters lactated ringers and Pitocin. URINE OUTPUT: 400 mL, clear via Brenner. SPECIMENS REMOVED: Placenta sent to Pathology. DVT PROPHYLAXIS: Sequential compression devices throughout the case. COUNTS: Correct x2. Timeout done correct. COMPLICATIONS: None. DISPOSITION: Stable to PACU, then to the floor. INDICATIONS FOR PROCEDURE: This patient is a 21-year-old G1, now P 0-1-0-2, who I have followed closely as an outpatient. She had a diagnosis of preeclampsia without severe features earlier in her . She was followed closely as an outpatient. On 07/20/2017 during routine testing, baby A's fluid had dropped to just above an MVP of 2 and plan was for admission for the duration of her . She had serial HELLP labs that remained normal and on day of her delivery she had a routine BPP that showed oligohydramnios of baby A, had 1.8 cm MVP and her HELLP labs were normal on that day. She was counseled for either an induction versus a . Patient felt very anxious about the possibility of needing a for baby B, despite possibly delivering baby vaginally and she elected to pursue a primary . Please see notes and consent for further details. The patient received magnesium for neuro protection leading up to her x 8 hours as well as betamethasone for lung maturity within 7 days of delivery and was followed by MFM and NICU had consulted on the patient pre-delivery. DESCRIPTION OF PROCEDURE: The patient was taken to the operating room and spinal anesthesia was placed and found to be adequate. She was positioned in supine position with a left lateral tilt and her arms out. The abdomen was prepped and draped in sterile fashion. A Brenner inserted. A Pfannenstiel incision was made and carried down to the fascia, which was extended on either side of the midline with Willis scissors and the rectus was dissected off the facia superiorly and inferiorly with Willis scissors. The peritoneum was entered bluntly and retracted laterally. A bladder flap was developed with Metzenbaum scissors and in the lower uterine segment a curvilinear incision was made and extended in a cephalad caudad fashion. My hand was inserted into the uterus and the head of baby A was elevated to the hysterotomy. With gentle fundal pressure, the head was delivered and with gentle downward and outward guidance the anterior and posterior shoulders were delivered with ease. Delayed cord clamping was done and then handed off to the NICU team. Baby B's amniotic sac was ruptured artificially. I returned my hand into the uterus and found baby B to be breech , the feet were grasped and pulled gently until the upper back was present out of the uterus. With left and right rotation, the upper extremities were delivered and, with a flexed head and fundal pressure, the head was delivered with ease. The had spontaneous cry and delayed cord clamping was again allowed. The cord was then clamped and cut and handed off to the NICU team. The placenta was delivered with bolus Pitocin and cord traction with uterine massage and was delivered intact. Uterus was exteriorized and cleared free of clot and debris. It was closed in a double-layer first with locking 0 Vicryl from left to right and a second imbricating layer with 0 Vicryl from left to right. The hysterotomy was hemostatic and the uterus was returned to the abdomen. The pericolic gutters were irrigated and the fascia was closed from left to right with 0 Vicryl. The subcutaneous tissue was irrigated and found to be hemostatic and the space was closed with 3-0 Monocryl in a running fashion. The skin was closed with 3-0 Monocryl in a subcuticular fashion. A pressure dressing was applied and the patient was transferred to PACU in stable condition. MD RAMIRO Shin/ , 08:58 PM , 09:39 PM DERRICK
[2017-07-28] MEDS: DOCUSATE SODIUM 50 MG/SENNA 8.6 MG TAB PO PRN (23:29)
[2017-07-29] MEDS: LACTATED RINGER'S 1000 ML INJ 1,000 ML IV SCH ×2 (00:24→10:24)
[2017-07-29] MEDS ORDERED: OXYTOCIN 30 UNITS-500ML PREMIX 500 ML IV PRN (00:30)
[2017-07-29] MEDS: KETOROLAC TROMETHAMINE 30 MG/ML (IVP) VIAL IV PUSH SCH ×3 (01:30→13:30)
[2017-07-29 03:52] VITALS: BP 130/84; PULSE 80; RESP 19; TEMP 97.9
[2017-07-29] MEDS: oxyCODONE/ACETAMINOPHEN 5 MG/325 MG TAB PO PRN ×3 (03:54→17:18)
[2017-07-29] MEDS: PROMETHAZINE INJ 25 MG/ML VIAL IM PRN ×3 (03:54→17:19)
[2017-07-29 05:56] LABS: HEMATOCRIT 36.1 % (35.0-46.0); MEAN CELL VOLUME 87.2 FL (80.0-100.0); MEAN CORPUSCULAR HEMOGLOBIN 29.1 PG (27.0-34.0); MEAN CORPUSCULAR HGB CONC 33.3 % (32.0-36.0); PLATELET COUNT 238 TH/MM3 (150-450); RED BLOOD COUNT 4.14 MIL/MM3 (4.00-5.30); RED CELL DISTRIBUTION WIDTH 14.2 % (11.6-17.2); WHITE BLOOD COUNT 20.5 TH/MM3 (4.0-11.0)
[2017-07-29 06:30] LABS: ALBUMIN 2.1 GM/DL (3.4-5.0); BICARBONATE 25.1 MEQ/L (21.0-32.0); BLOOD UREA NITROGEN 8 MG/DL (7-18); CALCIUM 9.1 MG/DL (8.5-10.1); CHLORIDE 103 MEQ/L (98-107); CREATININE 0.54 MG/DL (0.50-1.00); GLOMERULAR FILTRATION RATE 144 ML/MIN (>89); GLUCOSE,RANDOM 85 MG/DL (74-106); SODIUM (NA) 140 MEQ/L (136-145)
[2017-07-29 06:31] LABS: ALT (GPT) 32 U/L (9-42); AST (GOT) 25 U/L (16-38)
[2017-07-29 06:34] LABS: ALKALINE PHOSPHATASE 133 U/L (45-117); TOTAL BILIRUBIN ADULT 0.2 MG/DL (0.2-1.0); TOTAL PROTEIN 5.7 GM/DL (6.4-8.2)
[2017-07-29 06:56] VITALS: TEMP 98.2
[2017-07-29 06:57] VITALS: BP 129/83; PULSE 77
--- NOTE | 2017-07-29 07:08 | HHI.DS ---
Admission Date July 20, 2017 at 10:18 Discharge Date: July 31, 2017 Admitting Diagnosis 1. Monochorionic diamniotic gestation 2. Preeclampsia without severe features 3. Anemia Diagnosis: (1) Monochorionic diamniotic twin gestation ICD Codes: O30.039 - Twin , monochorionic/diamniotic, unspecified trimester (2) 31 weeks gestation of ICD Codes: Z3A.31 - 31 weeks gestation of (3) Preeclampsia ICD Codes: O14.90 - Unspecified pre-eclampsia, unspecified trimester (4) delivery delivered ICD Codes: O82 - Encounter for delivery without indication Delivery Date: July 28, 2017 : Primary (LTCS) Reason: by maternal request : Female (x2, baby A at 2002 , baby B at 2005, APGARS pending NICU), Multiple Brief History 21-year-old G1 now P0102 who was admitted at 30w2d due to increasing risk of outpatient management of her multiple obstetric comorbidities, patient had preeclampsia without severe features diagnosed earlier in the and had been getting routine testing, on the day of her admission the MVP of baby A was marginally low but still normal, during her admission she received a NICU consult and was followed by the M department, received betamethasone for lung maturity serial HELLP labs and testing, during routine testing a BPP revealed oligohydramnios of baby A, after consultation with [facility] given the multiple risk factors for continued expectant management the plan was made for delivery, the patient was counseled on the risks, benefits alternatives and expected outcomes of an induction versus a primary , patient elected for primary . She underwent an uncomplicated low transverse primary which was itself uncomplicated, the newborns went to the NICU, pts course was relatively uncomplicated, she did require antihypertensives for severe range BPs on POD #2, was started on procardia XL 60mg qd and magnesium for seizure ppx, on POD #4 she was meeting her milestones and BPs were normotensive to mild range and pt was discharged home and the plan was made to follow her up in 1 week in the office for blood pressure check, she was counseled on preeclampsia precautions and instructed to call the office if she developed any of these at home. She had some issues with breast pumping and was started on reglan and also gabapentin for possible neuropathic pain after her c section on the right side, pt was on prophylactic lovenox during her inpatient stay given her risk factors. Pt Condition on Discharge: Good Discharge Disposition: Discharge Home Discharge Instructions Diet Instructions: As Tolerated, No Restrictions Activities You Can Perform: Regular-No Restrictions Activities to Avoid: Driving for 24 hrs, Lifting/Bending, Strenuous Activity, Sexual Activity Follow up Referrals: [facility] - 1 Week @ [facility] with Azar Turcios MD New Medications: Ibuprofen (Ibuprofen) 600 Mg Tab 600 MG PO Q6H PRN for PAIN, #30 TAB 1 Refill Metoclopramide (Reglan) 10 Mg Tab 10 MG PO TID for Nausea, #84 TAB 0 Refills at end of 3rd week taper down, 2 pills for 3 days then 1 pill daily x 4days Nifedipine ER 24 HR (Procardia XL) 60 Mg Tab 60 MG PO DAILY for Blood Pressure Management, #30 TAB 2 Refills Oxycodone-Acetaminophen (Percocet) 5-325 mg Tab 1 TAB PO Q4H PRN for PAIN, #15 TAB 0 Refills Discontinued Medications: Cephalexin (Keflex) 500 Mg Cap 500 MG PO Q6H for Infection for 7 Days, #28 CAP 0 Refills Azar Turcios MD July 29, 2017 07:08
[2017-07-29] MEDS: IBUPROFEN 600 MG TAB PO PRN ×2 (07:13→12:57)
[2017-07-29] MEDS: ENOXAPARIN SODIUM 40 MG/0.4 ML SYRINGE SQ SCH (09:00)
[2017-07-29] MEDS: PANTOPRAZOLE SOD 20 MG DELAYED RELEASE TAB PO SCH (09:00)
--- NOTE | 2017-07-29 09:24 | HHI.OB ---
Subjective Post Operative Day: 1 Remarks ambulating comfortably pain controlled no PECK nausea or vomiting Objective Vitals/I&O Vital Signs Date Time Temp Pulse Resp B/P (MAP) Pulse Ox O2 Delivery O2 Flow Rate FiO2 07/29/17 06:57 77 129/83 (98) 07/29/17 06:56 98.2 07/29/17 03:52 97.9 80 19 130/84 (99) 07/29/17 00:29 17 07/28/17 23:30 87 146/76 (99) 07/28/17 23:30 17 07/28/17 23:29 97.7 07/28/17 22:43 92 136/83 (100) 07/28/17 21:45 20 99 07/28/17 21:45 86 142/76 (98) 07/28/17 21:30 88 23 144/81 (102) 100 07/28/17 21:15 81 19 134/74 (94) 100 07/28/17 21:00 88 21 132/83 (99) 100 07/28/17 20:45 98.2 82 19 107/79 (88) 99 Result Diagram: 07/29/17 0432 07/29/17 043 Objective Remarks GENERAL: Well-nourished, well-developed patient. CARDIOVASCULAR: Regular rate and rhythm without murmurs, gallops, or rubs. RESPIRATORY: Breath sounds equal bilaterally. No accessory muscle use. ABDOMEN/GI: Abdomen soft, non-tender, bowel sounds present. Incision: Clean, dry and intact. Fundus: Firm, non-tender at umbilicus. GENITOURINARY: Light to moderate bleeding. EXTREMITIES: No cyanosis or edema, non-tender, without signs of DVT. Medications and IVs Current Medications Medications (Trade) Dose Ordered Sig/Stephanie Route Start Time Stop Time Status Last Admin (Ambien) 5 mg HS PRN PO 07/20/17 21:00 07/26/17 23:06 (Protonix) 20 mg DAILY PO 07/29/17 09:00 Lactated Ringer's 1,000 ml @ 100 mls/hr Q10H IV 07/29/17 00:24 07/29/17 20:23 Oxytocin 500 ml @ 100 mls/hr UNSCH X1 PRN IV 07/29/17 00:30 07/30/17 00:29 (NS Flush) 2 ml BID IV FLUSH 07/28/17 21:00 (NS Flush) 2 ml UNSCH PRN IV FLUSH 07/28/17 19:30 (Mylicon Chew) 80 mg QID PRN PO 07/28/17 19:30 (Tylenol) 650 mg Q6H PRN PO 07/28/17 19:30 (Motrin) 600 mg Q6H PRN PO 07/28/17 19:30 07/29/17 07:13 (Percocet 5-325 Mg) 1 tab Q4H PRN PO 07/28/17 19:30 07/29/17 03:54 (Percocet 5-325 Mg) 2 tab Q4H PRN PO 07/28/17 19:30 (Mariela-Colace) 2 tab Q12H PRN PO 07/28/17 19:30 07/28/17 23:29 (M-M-R Ii Inj) 0.5 ml ONCE ONCE SQ 07/29/17 16:00 07/29/17 16:01 (Boostrix Inj) 0.5 ml ONCE ONCE IM 07/29/17 16:00 07/29/17 16:01 (Zofran Inj) 4 mg Q6H PRN IV PUSH 07/28/17 19:30 (Toradol Inj) 15 mg Q6H IV PUSH 07/28/17 19:30 07/29/17 19:29 (Phenergan Inj) 12.5 mg Q4H PRN IM 07/28/17 19:30 07/29/17 03:54 (Lovenox Inj) 40 mg Q24H SQ 07/29/17 09:00 ([facility] Nursing Information) NO SYSTEMIC NARCOTICS TO BE GIVEN FO... UNSCH PRN .XX 07/28/17 19:40 07/29/17 19:39 (Narcan Inj) 0.4 mg UNSCH PRN IV PUSH 07/28/17 19:40 07/29/17 19:39 (Benadryl Inj) 25 mg Q6H PRN IV PUSH 07/28/17 19:40 07/29/17 19:39 (Benadryl) 50 mg Q6H PRN PO 07/28/17 19:40 07/29/17 19:39 ([facility] Nursing Information) ALL NURSING DEPARTMENTS UNSCH PRN .XX 07/28/17 19:40 07/29/17 19:39 Assessment/Plan Problem List: (1) Preeclampsia ICD Codes: O14.90 - Unspecified pre-eclampsia, unspecified trimester Qualifiers: Qualified Codes: O14.93 - Unspecified pre-eclampsia, third trimester (2) Monochorionic diamniotic twin gestation ICD Codes: O30.039 - Twin , monochorionic/diamniotic, unspecified trimester Assessment and Plan 21-year-old G1 at 30w2d by 9wk US (GARRICK 09/26/17) 1. monochorionic diamniotic twin gestation: - Plan for 2x/d NST, 2x/wk BPP / UA dopplers (consulted MFM for this), consult NICU, SCDs, regular diet, IV access, T&S, nurse to collect GBS. - EFW today (07/20/17) A: 1704g (61%) MVP 2.5 cm, cephalic B: 1504g (37%) MVP 5.6 cm, cephalic. 8/8 BPP x2 today. 3. Preeclampsia w/o severe features: based on mild range BPs and 24hr urine of 549mg (07/11/17) - Patient aware of recommendations for inpatient management until delivery, goal for delivery is approximately 34 weeks. Based on position she would be a candidate for vaginal delivery, will further discuss with MFM to see their opinion on breech delivery of fetus B at current weight. - BMZ now and repeat in 24hrs for FLM - No need or mag at this time - Trend BPs, will consider starting BP medication given borderline BP, Strict I/ Os, 1-2x/week HELLP labs, on admission today WNL, will repeat 24hr urine while inpatient per MFM but will not jacquard loom card changer. 3. SPONTD: was only 3.99 MoM, s/p normal AU x2 with MFM. 4. Varicella and Rubella non immune: vaccines . 07/22/17 303/7 weeks, twins, STABLE, no c/o, 07/29/17 POD 1 twins doing incredibly well as is she normotensive routine post operative course Maryanne Roman MD July 29, 2017 09:24
[2017-07-29] MEDS: SODIUM CHLORIDE 0.9% FLUSH 10 ML FLUSH IV FLUSH SCH (11:25)
[2017-07-29 12:45] VITALS: BP 143/91; PULSE 98; RESP 18; TEMP 98.7
[2017-07-29 16:00] VITALS: BP 116/55; PULSE 87; RESP 18; O2SAT 96
[2017-07-29] MEDS ORDERED: DIPHTH/TETANUS/ACEL PERTUSSIS (BOOSTER) 0.5 ML VIAL/PFS IM ONE (16:00)
[2017-07-29] MEDS ORDERED: MEASLES, MUMPS, RUBELLA VACCINE 0.5 ML VIAL SQ ONE (16:00)
[2017-07-29] MEDS ORDERED: PROMETHAZINE HCL 25 MG TAB PO PRN (19:45)
[2017-07-29 20:27] VITALS: BP 126/81; PULSE 79; RESP 18; TEMP 97.5
[2017-07-30] VITALS (31 sets, daily range): BP systolic 125–174; BP diastolic 63–111; PULSE 77–120; RESP 15–20; TEMP 97.6–99.2; O2SAT 98–100
[2017-07-30] MEDS: oxyCODONE/ACETAMINOPHEN 5 MG/325 MG TAB PO PRN ×5 (00:21→20:09)
[2017-07-30] MEDS: DOCUSATE SODIUM 50 MG/SENNA 8.6 MG TAB PO PRN ×2 (00:21→15:58)
[2017-07-30] MEDS: IBUPROFEN 600 MG TAB PO PRN ×4 (00:22→20:09)
[2017-07-30] MEDS: SODIUM CHLORIDE 0.9% FLUSH 10 ML FLUSH IV FLUSH SCH ×2 (07:37→21:00)
[2017-07-30] MEDS ORDERED: REGL10TA5 PO (08:11)
--- NOTE | 2017-07-30 08:16 | HHI.OB ---
Subjective Post Operative Day: 2 Remarks Doing well, pain somewhat controlled, having intense burning on the right side of her incision, minimal bleeding, attempting to breast pump but having minimal output, voiding, positive flatus, no nausea or vomiting. Objective Vitals/I&O Vital Signs Date Time Temp Pulse Resp B/P (MAP) Pulse Ox O2 Delivery O2 Flow Rate FiO2 07/30/17 04:17 98.3 79 18 141/80 (100) 07/30/17 00:10 97.7 77 17 128/88 (101) 07/29/17 20:27 97.5 79 18 126/81 (96) 07/29/17 16:00 18 07/29/17 16:00 87 116/55 (75) 96 07/29/17 12:45 98.7 98 18 143/91 (108) Result Diagram: 07/29/1743107/29/17431 Objective Remarks GENERAL: Well-nourished, well-developed patient. CARDIOVASCULAR: Regular rate and rhythm without murmurs, gallops, or rubs. RESPIRATORY: Breath sounds equal bilaterally. No accessory muscle use. ABDOMEN/GI: Abdomen soft, non-tender, bowel sounds present. Incision: Clean, dry and intact. Fundus: Firm, non-tender at umbilicus. GENITOURINARY: Light to moderate bleeding. EXTREMITIES: No cyanosis or edema, non-tender, without signs of DVT. Medications and IVs Current Medications Medications (Trade) Dose Ordered Sig/Stephanie Route Start Time Stop Time Status Last Admin (Ambien) 5 mg HS PRN PO 07/20/17 21:00 07/26/17 23:06 (Protonix) 20 mg DAILY PO 07/29/17 09:00 (NS Flush) 2 ml BID IV FLUSH 07/28/17 21:00 07/29/17 11:25 (NS Flush) 2 ml UNSCH PRN IV FLUSH 07/28/17 19:30 (Mylicon Chew) 80 mg QID PRN PO 07/28/17 19:30 (Tylenol) 650 mg Q6H PRN PO 07/28/17 19:30 (Motrin) 600 mg Q6H PRN PO 07/28/17 19:30 07/30/17 07:14 (Percocet 5-325 Mg) 1 tab Q4H PRN PO 07/28/17 19:30 07/29/17 11:27 (Percocet 5-325 Mg) 2 tab Q4H PRN PO 07/28/17 19:30 07/30/17 07:14 (Mariela-Colace) 2 tab Q12H PRN PO 07/28/17 19:30 07/30/17 00:21 (Zofran Inj) 4 mg Q6H PRN IV PUSH 07/28/17 19:30 (Phenergan Inj) 12.5 mg Q4H PRN IM 07/28/17 19:30 07/29/17 17:19 (Lovenox Inj) 40 mg Q24H SQ 07/29/17 09:00 (Phenergan) 12.5 mg Q4H PRN PO 07/29/17 19:45 07/30/17 00:22 (Neurontin) 100 mg TID PO 07/30/17 09:00 UNV (Reglan) 10 mg TID PO 07/30/17 09:00 UNV Assessment/Plan Problem List: (1) Preeclampsia ICD Codes: O14.90 - Unspecified pre-eclampsia, unspecified trimester Qualifiers: Qualified Codes: O14.93 - Unspecified pre-eclampsia, third trimester (2) Monochorionic diamniotic twin gestation ICD Codes: O30.039 - Twin , monochorionic/diamniotic, unspecified trimester Assessment and Plan 21-year-old s/p PLTCS for maternal request of John twins at 31w3d 1. POD #2: Afebrile, vital signs stable, continue routine post operative care. Due to symptoms of possible neuropathic pain will begin gabapentin 3 times daily , possibly discharge home with this, patient to try abdominal binder as well. -Due to significant proteinuria, and her other comorbidities patient receiving prophylactic Lovenox until discharge, was not administered yesterday cannot be clarified by nursing. -Shoshone's doing well in NICU, due to minimal milk letdown discussed risks and benefits of Reglan, begin 10 mg 3 times daily discussed need to taper in the next few weeks as an outpatient. 2. Preeclampsia w/o severe features: Patient asymptomatic, blood pressures mild range, continued to follow. Patient aware of need to see us in the office within 1 week Azar Turcios MD July 30, 2017 08:16
[2017-07-30] MEDS: PANTOPRAZOLE SOD 20 MG DELAYED RELEASE TAB PO SCH (09:00)
[2017-07-30] MEDS: GABAPENTIN 100 MG CAP PO SCH ×2 (09:36→13:55)
[2017-07-30] MEDS: METOCLOPRAMIDE HCL 10 MG TAB PO SCH ×2 (09:36→13:56)
[2017-07-30] MEDS: ENOXAPARIN SODIUM 40 MG/0.4 ML SYRINGE SQ SCH (09:38)
[2017-07-30] MEDS ORDERED: NIFEdipine 10 MG CAP PO PRN ×6 (10:15→15:15)
[2017-07-30] MEDS ORDERED: NIFEdipine 30 MG SUSTAINED RELEASE TAB PO SCH (11:00)
[2017-07-30] MEDS ORDERED: NIFEdipine 30 MG SUSTAINED RELEASE TAB PO ONE (14:30)
[2017-07-30] MEDS ORDERED: NIFEdipine 10 MG CAP PO ONE (14:30)
--- NOTE | 2017-07-30 14:33 | HHI.PR ---
SERVICE ORDER TAKER Note Note received call form nursing about persistent severe BP after 15min recheck, plan to given 10 PO Procardia recheck in 20 min and if severe will call me back and give 20mg Procardia and begin magnesium. Will also increase scheduled Procardia XL to 60 for tomorrow and add 30mg XL now to total her daily dose to 60mg for today. Azar Turcios MD July 30, 2017 14:33
[2017-07-30] MEDS ORDERED: FUROSEMIDE 20 MG TAB PO ONE (16:45)
[2017-07-30] MEDS ORDERED: LACTATED RINGER'S 1000 ML INJ 1,000 ML IV SCH (17:26)
[2017-07-30] MEDS ORDERED: MAGNESIUM SULFATE 40 GM PREMIX 1,000 ML IV SCH (17:26)
[2017-07-30] MEDS ORDERED: MAGNESIUM SULFATE 4 GM PREMIX 100 ML IV ONE (17:30)
[2017-07-30] MEDS ORDERED: CALCIUM GLUCONATE 10% 1 GM/10 ML VIAL IV PUSH PRN (17:30)
[2017-07-31] VITALS: RESP 16
[2017-07-31 02:00] VITALS: BP 133/71; PULSE 92; RESP 16
[2017-07-31 03:09] VITALS: BP 134/83; PULSE 85; RESP 16
[2017-07-31 03:10] VITALS: TEMP 98
[2017-07-31] MEDS: IBUPROFEN 600 MG TAB PO PRN ×3 (03:14→20:10)
[2017-07-31] MEDS: oxyCODONE/ACETAMINOPHEN 5 MG/325 MG TAB PO PRN ×4 (03:14→18:02)
[2017-07-31] MEDS: NIFEdipine 30 MG SUSTAINED RELEASE TAB PO SCH (08:41)
[2017-07-31] MEDS: GABAPENTIN 100 MG CAP PO SCH ×3 (08:42→18:02)
[2017-07-31] MEDS: METOCLOPRAMIDE HCL 10 MG TAB PO SCH ×3 (08:42→18:02)
[2017-07-31] MEDS: ENOXAPARIN SODIUM 40 MG/0.4 ML SYRINGE SQ SCH (08:42)
[2017-07-31] MEDS: PANTOPRAZOLE SOD 20 MG DELAYED RELEASE TAB PO SCH (08:43)
[2017-07-31] MEDS: SODIUM CHLORIDE 0.9% FLUSH 10 ML FLUSH IV FLUSH SCH (09:00)
[2017-07-31] MEDS ORDERED: NIFE1TAB86 PO (09:38)
--- NOTE | 2017-07-31 09:40 | HHI.OB ---
Subjective Post Operative Day: 3 Remarks doing well, ambulating, voiding, pain somewhat improved but controlled, VB scant , no PECK, vision changes, epigastric or RUQ, tolerating diet, + flatus Objective Vitals/I&O Vital Signs Date Time Temp Pulse Resp B/P (MAP) Pulse Ox O2 Delivery O2 Flow Rate FiO2 07/31/17 03:10 98.0 07/31/17 03:09 85 07/31/17 03:09 16 134/83 (100) 07/31/17 02:00 16 07/31/17 02:00 92 133/71 (91) 07/31/17 00:00 16 07/30/17 23:02 118 137/65 (89) 07/30/17 23:01 16 07/30/17 23:01 98.2 07/30/17 22:02 18 07/30/17 22:02 102 125/63 (83) 07/30/17 21:01 110 18 135/67 (89) 07/30/17 20:04 116 141/69 (93) 07/30/17 19:02 18 07/30/17 18:34 120 99 07/30/17 18:20 111 157/90 (112) 07/30/17 18:15 105 18 152/84 (106) 07/30/17 18:12 18 07/30/17 18:10 106 147/83 (104) 07/30/17 18:07 18 07/30/17 18:05 104 151/81 (104) 07/30/17 18:05 18 07/30/17 18:00 101 153/86 (108) 07/30/17 17:45 102 151/88 (109) 07/30/17 17:39 107 163/95 (117) 07/30/17 17:18 100 07/30/17 17:18 166/111 (129) 07/30/17 17:15 20 100 07/30/17 17:15 99.2 07/30/17 14:51 90 07/30/17 14:50 151/94 (113) 07/30/17 14:07 87 163/100 (121) 07/30/17 14:00 93 174/109 (130) 07/30/17 12:04 20 07/30/17 12:00 15 07/30/17 12:00 93 151/97 (115) 07/30/17 11:39 90 159/96 (117) 07/30/17 10:20 91 159/89 (112) 07/30/17 09:48 167/101 (123) 07/30/17 09:43 153/95 (114) 07/30/17 09:43 93 Result Diagram: 07/29/17 0432 07/29/17 043 Objective Remarks GENERAL: Well-nourished, well-developed patient. CARDIOVASCULAR: Regular rate and rhythm without murmurs, gallops, or rubs. RESPIRATORY: Breath sounds equal bilaterally. No accessory muscle use. ABDOMEN/GI: Abdomen soft, non-tender, bowel sounds present. Incision: Clean, dry and intact. Fundus: Firm, non-tender at umbilicus. GENITOURINARY: Light to moderate bleeding. EXTREMITIES: No cyanosis or edema, non-tender, without signs of DVT. Medications and IVs Current Medications Medications (Trade) Dose Ordered Sig/Stephanie Route Start Time Stop Time Status Last Admin (Ambien) 5 mg HS PRN PO 07/20/17 21:00 07/26/17 23:06 (Protonix) 20 mg DAILY PO 07/29/17 09:00 (NS Flush) 2 ml BID IV FLUSH 07/28/17 21:00 07/29/17 11:25 (NS Flush) 2 ml UNSCH PRN IV FLUSH 07/28/17 19:30 (Mylicon Chew) 80 mg QID PRN PO 07/28/17 19:30 (Tylenol) 650 mg Q6H PRN PO 07/28/17 19:30 (Motrin) 600 mg Q6H PRN PO 07/28/17 19:30 07/31/17 03:14 (Percocet 5-325 Mg) 1 tab Q4H PRN PO 07/28/17 19:30 07/30/17 20:09 (Percocet 5-325 Mg) 2 tab Q4H PRN PO 07/28/17 19:30 07/31/17 07:34 (Mariela-Colace) 2 tab Q12H PRN PO 07/28/17 19:30 07/30/17 15:58 (Zofran Inj) 4 mg Q6H PRN IV PUSH 07/28/17 19:30 (Phenergan Inj) 12.5 mg Q4H PRN IM 07/28/17 19:30 07/29/17 17:19 (Lovenox Inj) 40 mg Q24H SQ 07/29/17 09:00 07/31/17 08:42 (Phenergan) 12.5 mg Q4H PRN PO 07/29/17 19:45 07/30/17 00:22 (Neurontin) 100 mg TID PO 07/30/17 09:00 07/31/17 08:42 (Reglan) 10 mg TID PO 07/30/17 09:00 07/31/17 08:42 (Procardia Xl) 60 mg DAILY PO 07/31/17 09:00 07/31/17 08:41 Lactated Ringer's 1,000 ml @ 75 mls/hr [id number] IV 07/30/17 17:26 07/30/17 18:00 Magnesium Sulfate 1,000 ml @ 50 mls/hr Q20H IV 07/30/17 17:26 07/30/17 18:00 (Calcium Gluconate Inj) 1 gm UNSCH PRN IV PUSH 07/30/17 17:30 Assessment/Plan Problem List: (1) Preeclampsia ICD Codes: O14.90 - Unspecified pre-eclampsia, unspecified trimester Qualifiers: Qualified Codes: O14.93 - Unspecified pre-eclampsia, third trimester (2) Monochorionic diamniotic twin gestation ICD Codes: O30.039 - Twin , monochorionic/diamniotic, unspecified trimester Assessment and Plan 21-year-old s/p PLTCS for maternal request of John twins at 31w3d 1. POD #3: Afebrile, vital signs stable, continue routine post operative care, likely d/c home tomorrow if BPs controlled. Discussed precautions, expectations and follow up. -Continue lovenox until d/c -'s doing well in NICU, still having issues with breast pumping and supply, continue Reglan, has rx for d/c. 2. Preeclampsia w/o severe features: Patient continues to be asymptomatic, blood pressures normotensive since [place], continue Procardia 60XL qd (has rx for d/ c), was started on mag given persistent severe range BPs yesterday afternoon, given diuresis, lack of symptoms and normal BPs will d/c this AM. Discussed prec precautions, and need to FU 1 week after d/c. Azar Turcios MD July 31, 2017 09:40
[2017-07-31] MEDS: DOCUSATE SODIUM 50 MG/SENNA 8.6 MG TAB PO PRN (20:09)
[2017-08-01] MEDS: oxyCODONE/ACETAMINOPHEN 5 MG/325 MG TAB PO PRN ×3 (00:17→09:17)
[2017-08-01] MEDS: IBUPROFEN 600 MG TAB PO PRN (04:19)
[2017-08-01 08:00] VITALS: BP 140/92
--- NOTE | 2017-08-01 08:57 | HHI.OB ---
Subjective Post Operative Day: 3 Remarks POD#3; stable, BP stable, pain well controlled. Objective Result Diagram: 07/29/17 04307/29/17431 Objective Remarks GENERAL: Well-nourished, well-developed patient. CARDIOVASCULAR: Regular rate and rhythm without murmurs, gallops, or rubs. RESPIRATORY: Breath sounds equal bilaterally. No accessory muscle use. ABDOMEN/GI: Abdomen soft, non-tender, bowel sounds present. Incision: Clean, dry and intact. Fundus: Firm, non-tender at umbilicus. GENITOURINARY: Light to moderate bleeding. EXTREMITIES: No cyanosis or edema, non-tender, without signs of DVT. Medications and IVs Current Medications Medications (Trade) Dose Ordered Sig/Stephanie Route Start Time Stop Time Status Last Admin (Ambien) 5 mg HS PRN PO 07/20/17 21:00 07/26/17 23:06 (Protonix) 20 mg DAILY PO 07/29/17 09:00 (NS Flush) 2 ml BID IV FLUSH 07/28/17 21:00 07/29/17 11:25 (NS Flush) 2 ml UNSCH PRN IV FLUSH 07/28/17 19:30 (Mylicon Chew) 80 mg QID PRN PO 07/28/17 19:30 (Tylenol) 650 mg Q6H PRN PO 07/28/17 19:30 (Motrin) 600 mg Q6H PRN PO 07/28/17 19:30 08/01/17 04:19 (Percocet 5-325 Mg) 1 tab Q4H PRN PO 07/28/17 19:30 07/31/17 13:12 (Percocet 5-325 Mg) 2 tab Q4H PRN PO 07/28/17 19:30 08/01/17 04:19 (Mariela-Colace) 2 tab Q12H PRN PO 07/28/17 19:30 07/31/17 20:09 (Zofran Inj) 4 mg Q6H PRN IV PUSH 07/28/17 19:30 (Phenergan Inj) 12.5 mg Q4H PRN IM 07/28/17 19:30 07/29/17 17:19 (Lovenox Inj) 40 mg Q24H SQ 07/29/17 09:00 07/31/17 08:42 (Phenergan) 12.5 mg Q4H PRN PO 07/29/17 19:45 07/30/17 00:22 (Neurontin) 100 mg TID PO 07/30/17 09:00 07/31/17 18:02 (Reglan) 10 mg TID PO 07/30/17 09:00 07/31/17 18:02 (Procardia Xl) 60 mg DAILY PO 07/31/17 09:00 07/31/17 08:41 (Calcium Gluconate Inj) 1 gm UNSCH PRN IV PUSH 07/30/17 17:30 Assessment/Plan Problem List: (1) Preeclampsia ICD Codes: O14.90 - Unspecified pre-eclampsia, unspecified trimester Qualifiers: Qualified Codes: O14.93 - Unspecified pre-eclampsia, third trimester (2) Monochorionic diamniotic twin gestation ICD Codes: O30.039 - Twin , monochorionic/diamniotic, unspecified trimester Assessment and Plan 21-year-old s/p PLTCS for maternal request of John twins at 31w3d 1. POD #3: Afebrile, vital signs stable, continue routine post operative care, likely d/c home tomorrow if BPs controlled. Discussed precautions, expectations and follow up. -Continue lovenox until d/c -'s doing well in NICU, still having issues with breast pumping and supply, continue Reglan, has rx for d/c. 2. Preeclampsia w/o severe features: Patient continues to be asymptomatic, blood pressures normotensive since [place], continue Procardia 60XL qd (has rx for d/ c), was started on mag given persistent severe range BPs yesterday afternoon, given diuresis, lack of symptoms and normal BPs will d/c this AM. Discussed prec precautions, and need to FU 1 week after d/c. 08/01/17; POD#3, stable, infants remain in NICU; plan discharge today Discharge Planning Routine Attending Attestation seen by Bridger Gale MD August 01, 2017 08:57
[2017-08-01] MEDS: METOCLOPRAMIDE HCL 10 MG TAB PO SCH (09:14)
[2017-08-01] MEDS: GABAPENTIN 100 MG CAP PO SCH (09:15)
[2017-08-01] MEDS: ENOXAPARIN SODIUM 40 MG/0.4 ML SYRINGE SQ SCH (09:15)
[2017-08-01] MEDS: PANTOPRAZOLE SOD 20 MG DELAYED RELEASE TAB PO SCH (09:15)
[2017-08-01] MEDS: NIFEdipine 30 MG SUSTAINED RELEASE TAB PO SCH (09:15)
[2017-08-01] MEDS: SODIUM CHLORIDE 0.9% FLUSH 10 ML FLUSH IV FLUSH SCH (09:32)
== END 2017-08-01 09:56 | disposition home or self-care (01) | DRG 765 ==
LOC: H2EA 10:18 → H1EA 07-29 11:42 → H2EA 07-30 17:32 → H1EA 07-31 12:59
PROVIDERS: ADMIT Obstetrics & Gynecology; ATTEND Obstetrics & Gynecology
PROC: 10D00Z1 Extraction of Products of Conception, Low, Open Approach (ICD-10-PCS; principal; 2017-07-26)
PROC: 3E0R3BZ Introduction of Anesthetic Agent into Spinal Canal, Percutaneous Approach (ICD-10-PCS; 2017-07-26)
DX: O14.04 Mild to moderate pre-eclampsia, complicating childbirth (principal); O41.03X0 Oligohydramnios, third trimester, not applicable or unspecified; O30.033 Twin pregnancy, monochorionic/diamniotic, third trimester; Z37.2 Twins, both liveborn; O99.02 Anemia complicating childbirth; R21 Rash and other nonspecific skin eruption; Z3A.31 31 weeks gestation of pregnancy; Z37.0 Single live birth
CPT/HCPCS: 59025; 76816; 76819; 76820; 80053; 80307; 82570; 82805; 84157; 85025; 85027; 86850; 86900; 86901; 87081; 88307; 90707; 90715; G0481; J0131; J0690; J0702; J1100; J1650; J1756; J1885; J2274; J2370; J2405; J2550; J2590; J3475; J7120; Q0169